=== PATIENT | female | born 1990 | race Caucasian/White ===

== ENCOUNTER 2020-06-25 11:39 | Emergency (ER) | payer BC, SELFPAY ==
[2020-06-25 11:40] VITALS: BP 126/91; PULSE 101; RESP 16; TEMP 36.7; O2SAT 96; BMI 37.2
--- NOTE | 2020-06-25 11:52 | HMH.EDURI ---
ED Disposition Clinical Impression: Viral infection Disposition: Home, Self-Care Condition on Discharge: Good Instructions: DI for Acute Bronchitis, DI for Viral Upper Respiratory Infection -- Adult Prescriptions: methylPREDNISolone [Medrol 4mg tab] 4 mg PO DIRECTED #21 tab Transmission Status: Pending to [id number] Referrals: Bushra Degroot MD [Primary Care Provider] - - Critical Care Critical Care Time: No Attestation: On , the high probability of a clinically significant, sudden or life threatening deterioration of the following system(s) required my full and direct attention, intervention and personal management. The time I documented below is in addition to time spent performing reported procedures but includes the following listed in this critical care notation. Medical Decision Making - Medical Records Medical records reviewed: Yes: I reviewed the patient's medical records. - Zackary Inquiry Pt receiving controlled substance: No - Lab Data Lab results reviewed: Yes: I reviewed the patient's lab results. URI/Sore Throat HPI - General Chief Complaint: Upper Respiratory Infection Stated Complaint: sore throat Time Seen by Provider: 06/25/20 11:39 Source of Information: Patient Limitations: No Limitations - History of Present Illness HPI Narrative: 2-year-old female presents with sore throat. She states she woke up with a sore throat and mainly pain on the left side. She does rate this pain as a sharp sensation constantly there and states is 3 out of 10. She describes alleviating factors include drinking cold fluids and exacerbating factors include swallowing. Patient denies any recent fever shakes or chills. Patient denies any nausea or vomiting. - Related Data Home Medications Medication Instructions Recorded Confirmed Potassium Chloride 1 tab PO QID 07/26/19 06/05/20 Previous Rx's Medication Instructions Recorded methylPREDNISolone [Medrol 4mg 4 mg PO DIRECTED #21 tab 06/25/20 tab] Allergies Allergy/AdvReac Type Severity Reaction Status Date / Time No Known Allergies Allergy Verified 06/05/20 14:58 [facility] History - Hepatitis A Screen Attestation statement:: This patient has been screened for Hepatitis A risk factors. I have reviewed the patient's past medical history: Yes Medical History: Reports:: Diabetes Mellitus Type 2 Other Surgeries: Yes: No Previous Surgery - Social History Smoking Status: Current every day smoker Tobacco Type: cigarettes # Packs/Day (cigarettes): 1 Alcohol Intake: never Occupational Status: other ROS Obtained: Yes All systems reviewed & no additional complaints - Constitutional Constitutional: Reports system reviewed and no additional complaints, except as docu - Eyes Eyes: Reports system reviewed and no additional complaints, except as docu - ENT Ears, Nose, Mouth, and Throat: Reports system reviewed and no additional complaints, except as docu - Cardiovascular Cardiovascular: Reports system reviewed and no additional complaints, except as docu - Respiratory Respiratory: Yes system reviewed and no additional complaints, except as docu - Gastrointestinal Gastrointestingal: Reports: system reviewed and no additional complaints, except as docu - Genitourinary Male Genitourinary: Reports system reviewed and no additional complaints, except as docu Female Genitourinary: Reports system reviewed and no additional complaints, except as docu - Musculoskeletal Musculoskeletal: Reports system reviewed and no additional complaints, except as docu - Integumentary/Breasts Skin/Breast: Reports system reviewed and no additional complaints, except as docu - Neurologic Neurologic: Reports system reviewed and no additional complaints, except as docu - Endocrine Endocrine: Reports system reviewed and no additional complaints, except as docu - Hematologic/Lymphatic Henatologic/Lymphatic: Reports system reviewed
[2020-06-25 12:48] VITALS: BP 132/85; PULSE 90; RESP 18; TEMP 36.7; O2SAT 98
[2020-06-25 12:55] LABS: Strep Scrn Group A (Rapid) Negative (Negative)
--- NOTE | 2020-06-25 14:57 | PC.NURSE ---
called patient and notified her that she was positive for covid as well as her daughter
== END 2020-06-25 12:49 | disposition home or self-care (01) ==
LOC: ER 11:57
PROVIDERS: Emergency Provider Family Medicine; PCP Family Medicine
DX: B34.9 Viral infection, unspecified (principal); F17.210 Nicotine dependence, cigarettes, uncomplicated; E11.9 Type 2 diabetes mellitus without complications
CPT/HCPCS: 87430; 96372; 99282; U0003

== ENCOUNTER 2020-07-21 11:53 | Emergency (ER) | payer BC, SELFPAY ==
--- NOTE | 2020-07-21 | ECG_ITS ---
APPROVED REPORT Exam: Resting ECG HR:88 bpm ECG Measurements Heart Rate 88 AXES SC 126 P 53 QRSd 84 QRS 77 QT 376 T 34 QTc 454 <Conclusion> Normal sinus rhythm Possible Left atrial enlargement Borderline ECG Electronically signed by : Stoney Rowley, 07/21/2020 16:29:52
[2020-07-21 11:53] VITALS: BP 144/89; PULSE 111; RESP 17; TEMP 37; O2SAT 96; BMI 38.0
[2020-07-21 12:02] VITALS: BMI 38.0
--- NOTE | 2020-07-21 12:02 | HMH.EDMCLR ---
ED Disposition Clinical Impression: Pleurisy, Hypokalemia Hyperglycemia due to type 2 diabetes mellitus Qualifiers: Diabetes mellitus fdc insulin use: unspecified fdc insulin use status Qualified Code(s): E11.65 - Type 2 diabetes mellitus with hyperglycemia Disposition: Home, Self-Care Condition on Discharge: Good Additional Instructions: You were seen on an emergency basis. It is very important that you follow up with your primary care provider and/or specialist as we discussed within 2 days. All labs and imaging were obtained and interpreted here to rule out life threatening emergencies, but your final results should be reviewed by your primary doctor at your follow up appointment. Please return to the emergency department if any of your symptoms worsen, or if they do not improve as we discussed. Referrals: Bushra Degroot MD [Primary Care Provider] - - Critical Care Critical Care Time: No Attestation: On 07/21/20, the high probability of a clinically significant, sudden or life threatening deterioration of the following system(s) required my full and direct attention, intervention and personal management. The time I documented below is in addition to time spent performing reported procedures but includes the following listed in this critical care notation. Medical Decision Making - Medical Records Medical records reviewed: Yes: I reviewed the patient's medical records. - Zackary Inquiry Pt receiving controlled substance: No Vital Signs: 07/21/20 11:53 07/21/20 12:23 07/21/20 13:52 Temperature 98.6 F Temperature Source Oral Pulse Rate [Left Radial] 111 H 89 88 Respiratory Rate 17 14 16 Blood Pressure [Right Arm] 144/89 H 102/74 L 134/79 Blood Pressure Mean [Right Arm] 107 83 97 Blood Pressure Source [Right Arm] Automatic Cuff Automatic Cuff Automatic Cuff Blood Pressure Position [Right Arm] Sitting Sitting Sitting 02 Sat by Pulse Oximetry 96 97 95 Oxygen Delivery Method Room Air Room Air Room Air 07/21/20 14:22 Temperature Temperature Source Pulse Rate [Left Radial] 93 H Respiratory Rate 20 Blood Pressure [Right Arm] 106/84 L Blood Pressure Mean [Right Arm] 91 Blood Pressure Source [Right Arm] Automatic Cuff Blood Pressure Position [Right Arm] Sitting 02 Sat by Pulse Oximetry 96 Oxygen Delivery Method Room Air - Lab Data Lab results reviewed: Yes: I reviewed the patient's lab results. Lab Results 07/21/20 12:00: WBC 12.5 H, RBC 5.20, Hgb 17.2 H, Hct 45.1, MCV 86.6, MCH 33.0 H, MCHC 38.1 H, RDW 14.9, Plt Count 260, MPV 8.1, Neut % (Auto) 62.3, Lymph % (Auto) 29.7, [place] % (Auto) 4.7, Eos % (Auto) 2.6, Baso % (Auto) 0.6, Neut # (Auto) 7.8, Lymph # (Auto) 3.7, Cloud # (Auto) 0.6, Eos # (Auto) 0.3, Baso # (Auto) 0.1 07/21/20 12:00: Sodium 134 L, Potassium 2.2 L*, Chloride 88 L, Carbon Dioxide 34 H, Anion Gap 14.2, BUN 12, Creatinine 0.60, Estimated Creat Clear 211, Estimated GFR 117, Est GFR ( Amer) 142, Glucose 435 H*, Calcium 9.9 07/21/20 12:00: D-Dimer 0.38 07/21/20 12:00: Serum HCG, Qual Negative 07/21/20 12:00: SARS-CoV-2 IgG Ab (Rapid) Negative, SARS-CoV-2 IgM Ab (Rapid) Negative 07/21/20 13:00: Urine Color Red, Urine Appearance Cloudy, Urine pH 8.0, Ur Specific [place] 1.015, Urine Protein 3+, Urine Glucose (UA) 3+, Urine Ketones Trace, Urine Blood 3+, Urine Nitrate Positive, Urine Bilirubin Negative, Urine Urobilinogen 1.0, Ur Leukocyte Esterase 2+ A, Urine RBC Tntc, Urine WBC 20-50, Ur Squamous Epith Cells 10-20, Amorphous Sediment 2+, Urine Bacteria 2+ Result diagrams: 07/21/20 12:00 07/21/20 12:00 Orders (Tests/Meds): ED MEDICATIONS Generic Name Dose Route Start Last Admin Trade Name Freq PRN Reason Stop Dose Admin Potassium Chloride/Water 100 mls @ 50 mls/hr 07/21/20 13:00 07/21/20 15:00 Potassium Chloride 20meq/100ml Ivpb IV 07/21/20 16:59 50 mls/hr Q2H NASRIN Administration Discontinued Medications Generic Name Dose Route Start Last Admin Trad
--- NOTE | 2020-07-21 12:04 | XR_ITS ---
PROCEDURE: XR CHEST 2V CLINICAL HISTORY: CHEST WALL PAIN COMPARISON: CR CXR CHEST(2 VIEWS-NOT PORTABLE) from 06/22/2013 CR CXR CHEST(2 VIEWS-NOT PORTABLE) from 04/13/2015 FINDINGS: The cardiomediastinal silhouette and pulmonary vascularity are within normal limits. The lungs are clear without infiltrates, suspicious nodules, or pleural effusions. No acute bony abnormalities. IMPRESSION: No acute findings. Dictated by: Dr. Edgardo Flores MD 07/21/2020 13:00 Dr. Edgardo Flores MD in [facility] 07/21/2020 13:00
[2020-07-21 12:17] LABS: Basophils # 0.1 K/mm3 (0-0.2); Basophils % 0.6 % (0.1-2.0); Eosinophils # 0.3 K/mm3 (0.0-0.4); Eosinophils % 2.6 % (0.1-12.0); Hematocrit 45.1 % (37.0-47.0); Hemoglobin 17.2 g/dL (12.2-16.2); Lymphocytes # 3.7 K/mm3 (0.7-4.5); Lymphocytes % 29.7 % (10-50); Mean Corpuscular HGB Conc 38.1 g/dL (31.8-35.4); Mean Corpuscular Volume 86.6 fl (81-99); Mean Platelet Volume 8.1 fl (7.4-10.4); Monocytes # 0.6 K/mm3 (0.1-1.0); Monocytes % 4.7 % (1.7-9.3); Neutrophils # 7.8 K/mm3 (1.8-7.8); Neutrophils % 62.3 % (37.0-80.0); Platelet Count 260 K/mm3 (142-424); Red Cell Distribution Width 14.9 % (11.5-17.5); White Blood Count 12.5 K/mm3 (4.8-10.8)
[2020-07-21 12:22] LABS: Chloride 88 mmol/L (98-107)
[2020-07-21 12:23] VITALS: BP 102/74; PULSE 89; RESP 14; O2SAT 97
[2020-07-21 12:23] LABS: Sodium 134 mmol/L (136-145)
[2020-07-21 12:24] LABS: Potassium 2.2 mmoL/L (3.5-5.1)
[2020-07-21 12:25] LABS: Blood Urea Nitrogen 12 mg/dl (7-17); Creatinine Clearance Estimated 211 mL/min (50-200); Estimated Glomerular Filt Rate 117 ml/min (>60); GFR (African American) 142 ML/MIN (>60)
[2020-07-21 12:26] LABS: Anion Gap 14.2 mEq/L (5-15); Calcium 9.9 mg/dl (8.4-10.2); Carbon Dioxide 34 mmol/L (22.0-30.0)
[2020-07-21 12:29] LABS: HCG Qualitative, Serum Negative (Negative)
[2020-07-21 12:31] LABS: Glucose 435 mg/dl (74-100)
[2020-07-21 12:32] LABS: D-Dimer 0.38 ug/mL (0.15-8.0)
--- NOTE | 2020-07-21 13:00 | PC.NURSE ---
Pt moved from room 9 to room 7 for potasssium infusion
[2020-07-21 13:02] LABS: Microscopic, Urine URINE MICROSCOPIC (MICROSCOPIC)
[2020-07-21 13:06] LABS: Appearance,Urine CLOUDY (Clear); Blood, Urine 3+ (Negative); Color,Urine RED (Yellow); Glucose,Urine (UA) 3+ (Negative); Ketones,Urine TRACE (Negative); Leukocyte Esterase,Urine 2+ (Negative); Nitrate,Urine POSITIVE (Negative); Protein,Urine 3+ (Negative); Specific Gravity, Urine 1.015 (1.005-1.030)
[2020-07-21 13:14] LABS: Bilirubin,Urine Negative (Negative)
[2020-07-21 13:16] LABS: Amorphous Sediment,Urine 2+ /lpf; Bacteria,Urine 2+ /lpf; RBC,Urine TNTC #/hpf (0-3); WBC,Urine 20-50 #/hpf (0-3)
--- NOTE | 2020-07-21 13:34 | PC.NURSE ---
speaking to for admission
--- NOTE | 2020-07-21 13:37 | PC.NURSE ---
states that is the pt normal with 2.2 of potassium. states after infusion pt can DC home and fu with PCP
[2020-07-21 13:52] VITALS: BP 134/79; PULSE 88; RESP 16; O2SAT 95
[2020-07-21 14:22] VITALS: BP 106/84; PULSE 93; RESP 20; O2SAT 96
[2020-07-21 15:19] LABS: Coronavirus 19 IgG Antibody Negative (Negative); Coronavirus 19 IgM Antibody Negative (Negative)
[2020-07-21 17:00] VITALS: BP 131/74; PULSE 85; RESP 17; TEMP 37; O2SAT 97
== END 2020-07-21 17:02 | disposition home or self-care (01) ==
PROVIDERS: Emergency Provider Physician Assistant; PCP Family Medicine
DX: R09.1 Pleurisy (principal); E87.6 Hypokalemia; E11.65 Type 2 diabetes mellitus with hyperglycemia; F17.210 Nicotine dependence, cigarettes, uncomplicated; Z03.818 Encounter for observation for suspected exposure to other biological agents ruled out
CPT/HCPCS: 71046; 80048; 81001; 84703; 85025; 85378; 86328; 87086; 93005; 96365; 96366; 96367; 96375; 99284

== ENCOUNTER 2020-10-01 17:17 | Emergency (ER) | payer BC, SELFPAY ==
[2020-10-01 17:38] VITALS: BP 153/86; PULSE 72; RESP 16; TEMP 36.7; O2SAT 98; BMI 37.2
--- NOTE | 2020-10-01 17:46 | HMH.EDGENADL ---
ED Disposition Clinical Impression: Hypokalemia, Quadriceps weakness Disposition: Home, Self-Care Condition on Discharge: Fair Instructions: DI for Hypokalemia Additional Instructions: Double your usual dose of potassium. Follow-up with your primary care provider soon as possible, call tomorrow to be seen within 1 to 2 days. You will need your potassium level rechecked, and a recheck on your elevated white blood cell count. Turn to the emergency department if worsening pain or weakness, fever, vomiting, any new symptoms. Referrals: Bushra Degroot MD [Primary Care Provider] - - Critical Care Critical Care Time: Yes Attestation: On 10/01/20, the high probability of a clinically significant, sudden or life threatening deterioration of the following system(s) required my full and direct attention, intervention and personal management. The time I documented below is in addition to time spent performing reported procedures but includes the following listed in this critical care notation. Total Critical Care Time: 30 Vital system(s) involved:: Metabolic Failure My critical care processes included: Assessment & monitoring of V/S, Initial and Re-exams, Data Review/Interpretation, Coordinating Care, Medication Orders and management, Documentation Medical Decision Making - Medical Records Medical records reviewed: Yes: I reviewed the patient's medical records. MR Comment: Reviewed recent ER visit 07/21/2020 - Zackary Inquiry Pt receiving controlled substance: No Vital Signs: 10/01/20 17:38 10/01/20 17:55 Temperature 98.1 F Temperature Source Oral Pulse Rate [Right Brachial] 72 96 H Respiratory Rate 16 Blood Pressure [Right Arm] 153/86 H 153/86 H Blood Pressure Mean [Right Arm] 108 108 Blood Pressure Source [Right Arm] Automatic Cuff Automatic Cuff Blood Pressure Position [Right Arm] Sitting Sitting 02 Sat by Pulse Oximetry 98 97 Oxygen Delivery Method Room Air Room Air - Lab Data Lab results reviewed: Yes: I reviewed the patient's lab results. Lab Results 10/01/20 18:26: WBC 19.6 H, RBC 5.75 H, Hgb 18.0 H, Hct 51.0 H, MCV 88.7, MCH 31.3 H, MCHC 35.2, RDW 14.5, Plt Count 262, MPV 8.3, Neut % (Auto) 70.3, Lymph % (Auto) 22.9, [place] % (Auto) 4.2, Eos % (Auto) 1.9, Baso % (Auto) 0.7, Neut # (Auto) 13.8 H, Lymph # (Auto) 4.5, [place] # (Auto) 0.8, Eos # (Auto) 0.4, Baso # (Auto) 0.1, Total Counted 100, Neutrophils % (Manual) 86 H, Band Neutrophils % 4.0, Lymphocytes % (Manual) 9 L, Eosinophils % (Manual) 1, Platelet Estimate Normal, RBC Morphology Normal 10/01/20 18:26: Sodium 135 L, Potassium 1.9 L*, Chloride 91 L, Carbon Dioxide 33 H, Anion Gap 12.9, BUN 13, Creatinine 0.60, Estimated Creat Clear 206, Estimated GFR 117, Est GFR ( Amer) 142, Glucose 345 H, Calcium 9.9, Total Bilirubin 0.5, AST 44 H, ALT 62, Alkaline Phosphatase 155 H, Total Creatine Kinase 164 H, Total Protein 7.5, Albumin 4.3, Globulin 3.2, Albumin/Globulin Ratio 1.3 10/01/20 18:26: Magnesium 1.5 L 10/01/20 18:26: SARS-CoV-2 IgG Ab (Rapid) Negative, SARS-CoV-2 IgM Ab (Rapid) Negative 10/01/20 20:30: Urine Color Yellow, Urine Appearance Sl cloudy, Urine pH 7.0, Ur Specific [place] 1.020, Urine Protein Negative, Urine Glucose (UA) 3+, Urine Ketones Negative, Urine Blood Negative, Urine Nitrate Negative, Urine Bilirubin Negative, Urine Urobilinogen 0.2, Ur Leukocyte Esterase Negative, Urine WBC Occasional, Ur Squamous Epith Cells 20-50 Result diagrams: 10/01/20 18:26 10/01/20 18:26 Orders (Tests/Meds): ED MEDICATIONS Generic Name Dose Route Start Last Admin Trade Name Freq PRN Reason Stop Dose Admin Potassium Chloride/Water 20 meq 10/01/20 19:31 Potassium Chloride 20meq/100ml Ivpb IV 10/01/20 19:32 ONCE ONE Discontinued Medications Generic Name Dose Route Start Last Admin Trade Name Freq PRN Reason Stop Dose Admin Potassium Chloride 40 meq 10/01/20 19:31 10/01/20 19:33 Potassium Chloride 20meq Tab PO 10/01/20 19:32 40 meq
[2020-10-01 17:55] VITALS: BP 153/86; PULSE 96; O2SAT 97
[2020-10-01 18:48] LABS: Basophils # 0.1 K/mm3 (0-0.2); Basophils % 0.7 % (0.1-2.0); Eosinophils # 0.4 K/mm3 (0.0-0.4); Eosinophils % 1.9 % (0.1-12.0); Lymphocytes # 4.5 K/mm3 (0.7-4.5); Lymphocytes % 22.9 % (10-50); Mean Corpuscular HGB Conc 35.2 g/dL (31.8-35.4); Mean Corpuscular Hemoglobin 31.3 pg (27.0-31.2); Mean Corpuscular Volume 88.7 fl (81-99); Mean Platelet Volume 8.3 fl (7.4-10.4); Monocytes # 0.8 K/mm3 (0.1-1.0); Monocytes % 4.2 % (1.7-9.3); Neutrophils # 13.8 K/mm3 (1.8-7.8); Neutrophils % 70.3 % (37.0-80.0); Platelet Count 262 K/mm3 (142-424); Red Blood Count 5.75 M/mm3 (4.20-5.40); Red Cell Distribution Width 14.5 % (11.5-17.5); White Blood Count 19.6 K/mm3 (4.8-10.8)
[2020-10-01 18:50] LABS: MANUAL DIFFERENTIAL MANUAL DIFFERENTIAL (MANUAL DIFF)
[2020-10-01 18:54] LABS: Alanine Aminotransferase 62 U/L (12-78); Albumin Level 4.3 g/dl (3.5-5.0); Albumin/Globulin Ratio 1.3 (1.1-1.8); Alkaline Phosphatase 155 U/L (38-126); Anion Gap 12.9 mEq/L (5-15); Aspartate Amino Transferase 44 U/L (14-36); Bilirubin,Total 0.5 mg/dl (0.2-1.3); Blood Urea Nitrogen 13 mg/dl (7-17); Calcium 9.9 mg/dl (8.4-10.2); Carbon Dioxide 33 mmol/L (22.0-30.0); Chloride 91 mmol/L (98-107); Creatine Kinase 164 U/L (30-135); Creatinine Clearance Estimated 206 mL/min (50-200); Estimated Glomerular Filt Rate 117 ml/min (>60); GFR (African American) 142 ML/MIN (>60); Globulin 3.2 g/dL (1.3-3.2); Glucose 345 mg/dl (74-100); Sodium 135 mmol/L (136-145); Total Protein,Serum 7.5 g/dl (6.3-8.2)
[2020-10-01 19:07] LABS: Potassium 1.9 mmoL/L (3.5-5.1)
[2020-10-01 19:09] LABS: Eosinophils % 1 % (0-3); Lymphocytes % 9 % (10-50); Neutrophils % 86 % (42-76); Platelet Estimate Normal; RBC Morphology Normal; Total Cells Counted 100
--- NOTE | 2020-10-01 19:20 | PC.NURSE ---
Critical K+ reported from lab, Dr Deleon notified
[2020-10-01 19:42] LABS: Magnesium 1.5 mg/dl (1.6-2.3)
--- NOTE | 2020-10-01 19:44 | PC.NURSE ---
IV Potassium started, does not reflex to MAR is running via pump per Dr Deleon orders
[2020-10-01 20:31] LABS: Coronavirus 19 IgG Antibody Negative (Negative); Coronavirus 19 IgM Antibody Negative (Negative)
[2020-10-01 20:35] LABS: Microscopic, Urine URINE MICROSCOPIC (MICROSCOPIC)
[2020-10-01 20:37] LABS: Appearance,Urine SL CLOUDY (Clear); Bilirubin,Urine Negative (Negative); Blood, Urine Negative (Negative); Color,Urine YELLOW (Yellow); Glucose,Urine (UA) 3+ (Negative); Ketones,Urine Negative (Negative); Leukocyte Esterase,Urine Negative (Negative); Nitrate,Urine Negative (Negative); Protein,Urine Negative (Negative); Urobilinogen,Urine 0.2 EU/dl (0.2)
[2020-10-01 20:39] LABS: Squamous Epithelial Cell,Urine 20-50 #/hpf (0-5); WBC,Urine Occasional #/hpf (0-3)
[2020-10-01 21:07] VITALS: BP 148/68; PULSE 86; RESP 16; TEMP 36.7; O2SAT 97
== END 2020-10-01 21:11 | disposition home or self-care (01) ==
PROVIDERS: Emergency Provider Emergency Medicine; PCP Family Medicine
DX: E87.6 Hypokalemia (principal); M62.81 Muscle weakness (generalized); E11.65 Type 2 diabetes mellitus with hyperglycemia; Z01.84 Encounter for antibody response examination; F17.210 Nicotine dependence, cigarettes, uncomplicated; R03.0 Elevated blood-pressure reading, without diagnosis of hypertension
CPT/HCPCS: 80053; 81001; 82550; 83735; 85007; 85025; 86328; 96365; 96375; 99283

== ENCOUNTER → 2020-10-03 12:28 | Outpatient (CLI) | payer BC, SELFPAY ==
[2020-10-03 15:07] LABS: Potassium 3.1 mmoL/L (3.5-5.1)
[2020-10-03 15:10] LABS: Glucose,Random 169 mg/dL (74-100)
== END ==
PROVIDERS: Visit Provider Family Medicine
DX: E87.6 Hypokalemia (principal); E26.81 Bartter's syndrome; E11.9 Type 2 diabetes mellitus without complications
CPT/HCPCS: 36415; 82947; 84132

== ENCOUNTER 2021-04-06 09:01 | Emergency (ER) | payer BC, SELFPAY ==
[2021-04-06 09:05] VITALS: BP 131/71; PULSE 99; RESP 19; TEMP 37; O2SAT 98; BMI 38.0
--- NOTE | 2021-04-06 09:16 | HMH.EDUTC ---
[facility] [place] Disposition Clinical Impression: Strep throat Disposition: Home, Self-Care Condition on Discharge: Good Instructions: DI for Strep Throat Additional Instructions: Replace toothbrush. Take all antibiotics as directed until gone. Prescriptions: Amoxicillin [Amoxicillin 875MG Tab] 875 mg PO Q12H #20 tab Transmission Status: Pending to [id number] Referrals: Bushra Degroot MD [Primary Care Provider] - Time of Disposition: 09:26 Medical Decision Making - Zackary Inquiry Pt receiving controlled substance: No - Lab Data Lab results reviewed: Yes: I reviewed the patient's lab results. [facility] [place] HPI - General Stated complaint: sore throat Time Seen by Provider: 04/06/21 09:16 - History of Present Illness Provider Complaint: Sore throat X 1 week. No fever. Denies ear pain, congestion, cough. Denies vomiting/diarrhea. Onset (ago): week(s) (1) Relieving factors: none Exacerbating factors: none Associated symptoms: denies other symptoms Treatments prior to arrival: other (Dayquil/Nyquil) - Related Data Home Medications Medication Instructions Recorded Confirmed Potassium Chloride 1 tab PO QID 07/26/19 07/21/20 Empagliflozin [Jardiance] 25 mg PO DAILY 04/06/21 04/06/21 Metformin HCl 500 mg PO BID 04/06/21 04/06/21 Previous Rx's Medication Instructions Recorded Amoxicillin [Amoxicillin 875MG 875 mg PO Q12H #20 tab 04/06/21 Tab] Allergies Allergy/AdvReac Type Severity Reaction Status Date / Time No Known Allergies Allergy Verified 06/05/20 14:58 [facility] History - Hepatitis A Screen Attestation statement:: This patient has been screened for Hepatitis A risk factors. I have reviewed the patient's past medical history: Yes Medical History: Reports:: Diabetes Mellitus Type 2 Other Surgeries: Yes: No Previous Surgery - Social History Smoking Status: Current every day smoker Tobacco Type: cigarettes # Packs/Day (cigarettes): 1 Alcohol Intake: never Occupational Status: employed ROS Obtained: Yes All systems reviewed & no additional complaints - Constitutional Constitutional: Denies fever(s) - ENT Ears, Nose, Mouth, and Throat: Reports sore throat Physical Exam - General General appearance: alert, in no apparent distress - Head Head exam: normocephalic - Eye Eye exam: Present: PERRL - Expanded ENT Exam Throat exam: Present: tonsillar erythema, tonsillomegaly, tonsillar exudate - Chest Chest inspection: Present: normal inspection, symmetric chest wall rise - Respiratory Respiratory exam: Present: normal lung sounds bilaterally - Cardiovascular Cardiovascular exam: Present: regular rate, normal rhythm - Neurological Exam Neurological exam: Present: alert, oriented X3 - Psychiatric Psychiatric exam: Present: normal affect, normal mood - Skin Skin exam: Present: warm, dry, intact
[2021-04-06 09:21] LABS: UTC Strep Screen (Rapid) Positive (Negative)
[2021-04-06 09:27] VITALS: BP 131/71; PULSE 99; RESP 19; TEMP 37; O2SAT 98
== END 2021-04-06 09:30 | disposition home or self-care (01) ==
PROVIDERS: Emergency Provider Physician Assistant; PCP Family Medicine
DX: J02.0 Streptococcal pharyngitis (principal); E11.9 Type 2 diabetes mellitus without complications; F17.210 Nicotine dependence, cigarettes, uncomplicated
CPT/HCPCS: 87880; 99202; G0463

== ENCOUNTER 2021-06-17 13:15 | Emergency (ER) | payer BC, SELFPAY ==
[2021-06-17 13:23] VITALS: BP 120/74; PULSE 104; RESP 16; TEMP 36.7; O2SAT 95; BMI 38.0
[2021-06-17 14:21] VITALS: PULSE 86; RESP 18; TEMP 36.6; O2SAT 97; BMI 38.0
--- NOTE | 2021-06-17 14:57 | HMH.EDUTC ---
[facility] [place] Disposition Clinical Impression: Dyspepsia Disposition: Home, Self-Care Condition on Discharge: Good Instructions: DI for Dyspepsia, Famotidine Additional Instructions: Drink plenty of fluids. Take tylenol or ibuprofen for pain or fever. Take the medications as directed. Follow up with your regular doctor. GO TO THE ER FOR ANY WORSENING SYMPTOMS I put in a referral to the GI secialist, please call his office number and make our Prescriptions: Ondansetron [Zofran 4mg ODT] 4 mg PO Q8HP PRN #12 tab.rapdis PRN Reason: Nausea [facility] Sucralfate [Carafate 1gm Tab] 1 gm PO ACHS #56 tab Transmission Status: [facility] Famotidine [Pepcid 20mg Tablet] 20 mg PO BID 30 Days #60 tab Transmission Status: [facility] Referrals: Bushra Degroot MD [Primary Care Provider] - Nnamdi Mckenzie MD [Staff Physician] - Forms: Work/School Release Time of Disposition: 15:08 Medical Decision Making - Medical Records Medical records reviewed: No: I reviewed the patient's medical records. - Zackary Inquiry Pt receiving controlled substance: No Vital Signs: 06/17/21 13:23 06/17/21 14:21 06/17/21 15:11 Temperature 98.1 F 98 F 98 F Temperature Source Oral Oral Pulse Rate 81 Pulse Rate [Right Radial] 104 H 86 Respiratory Rate 16 18 16 Blood Pressure 124/79 Blood Pressure [Left Arm] 120/74 Blood Pressure Mean [Left Arm] 89 Blood Pressure Source [Left Arm] Automatic Cuff Blood Pressure Position [Left Arm] Sitting 02 Sat by Pulse Oximetry 95 97 Oxygen Delivery Method Room Air [facility] [place] HPI - General Stated complaint: burning in stomach, occasional chest pain Time Seen by Provider: 06/17/21 13:45 Mode of Arrival: Ambulatory Source of Information: Patient Limitations: No Limitations Description of Symptoms (Recalled from Triage Doc. by RN): pt states she is having a burning sensation in her epigasteric region. she also c/o chest pain and nausea after eating. no chest pain at this time. pt states this has been ongoing for one week. HEENT Symptoms (Recalled from RN notes): No Resp Symptoms (Recalled from RN notes): No Skin Symptoms (Recalled from RN notes): No MS Symptoms (Recalled from RN notes): No Functional Status (Recalled from RN notes): na - History of Present Illness Provider Complaint: She states that for the past 1 week approx, she has had frequent episodes of heart burn and gi upset. She denies any abdominal pain. - Related Data Home Medications Medication Instructions Recorded Confirmed Potassium Chloride 1 tab PO QID 07/26/19 04/06/21 Empagliflozin [Jardiance] 25 mg PO DAILY 04/06/21 04/06/21 Metformin HCl 500 mg PO BID 04/06/21 04/06/21 Previous Rx's Medication Instructions Recorded Amoxicillin [Amoxicillin 875MG 875 mg PO Q12H #20 tab 04/06/21 Tab] Famotidine [Pepcid 20mg Tablet] 20 mg PO BID 30 Days #60 tab 06/17/21 Ondansetron [Zofran 4mg ODT] 4 mg PO Q8HP PRN #12 tab.rapdis 06/17/21 Sucralfate [Carafate 1gm Tab] 1 gm PO ACHS #56 tab 06/17/21 Allergies Allergy/AdvReac Type Severity Reaction Status Date / Time No Known Allergies Allergy Verified 06/17/21 14:23 - Worker's Comp Is this a Worker's Comp case?: No [facility] History - Hepatitis A Screen Drug use history?: No High risk sexual behaviors?: No History of sexually transmitted infection?: No Currently employed?: No Childcare worker?: No Do you have indoor plumbing?: Yes Do you have electricity?: Yes Attestation statement:: This patient has been screened for Hepatitis A risk factors. I have reviewed the patient's past medical history: Yes Medical History: Reports:: Diabetes Mellitus Type 2 Other Surgeries: Yes: No Previous Surgery - Social History Smoking Status: Current every day smoker Tobacco Type: cigarettes # Packs/Day (cigarettes): 1 Alcohol Intake: never Occu
[2021-06-17 15:11] VITALS: BP 124/79; PULSE 81; RESP 16; TEMP 36.6
[2021-06-20 14:04] LABS: UTC Strep Screen (Rapid) Negative (Negative)
== END 2021-06-17 15:15 | disposition home or self-care (01) ==
PROVIDERS: Emergency Provider Nurse Practitioner Family; PCP Family Medicine
DX: R10.13 Epigastric pain (principal); E11.9 Type 2 diabetes mellitus without complications; Z79.84 Long term (current) use of oral hypoglycemic drugs
CPT/HCPCS: 87880; 99202; G0463

== ENCOUNTER → 2021-07-05 08:18 | Outpatient (CLI) | payer BC, SELFPAY ==
--- NOTE | 2021-07-05 08:23 | XR_ITS ---
PROCEDURE: XR FOOT WT BEARING RT 3V CLINICAL INDICATION: foot pain COMPARISON: No exams were available for comparison FINDINGS: No fracture or dislocation. No lytic or blastic change. There is normal mineralization. The joint spaces are well-preserved. No significant degenerative/arthritic changes. No erosive changes evident. Other findings:Small calcaneal spur IMPRESSION: No acute findings. Dictated by: Jens Mata MD 07/05/2021 11:26 Jens Mata MD in [facility] 07/05/2021 11:26
--- NOTE | 2021-07-05 08:23 | XR_ITS ---
PROCEDURE: XR FOOT WT BEARING LT 3V CLINICAL INDICATION: foot pain COMPARISON: No exams were available for comparison FINDINGS: No fracture or dislocation. No lytic or blastic change. There is normal mineralization. The joint spaces are well-preserved. No significant degenerative/arthritic changes. No erosive changes evident. Other findings:Small calcaneal spur IMPRESSION: No acute findings. Dictated by: Jens Mata MD 07/05/2021 11:26 Jens Mata MD in [facility] 07/05/2021 11:26
== END ==
LOC: RAD 08:19
PROVIDERS: PCP Family Medicine; Visit Provider Podiatrist
DX: M79.672 Pain in left foot (principal); M79.671 Pain in right foot
CPT/HCPCS: 73630

== ENCOUNTER 2022-10-28 12:48 | Emergency (ER) | payer BC, SELFPAY ==
--- NOTE | 2022-10-28 14:08 | EXP.UTC ---
Discharge Plan Disposition Patient Disposition: Home, Self-Care Condition: Good Prescriptions Prescriptions: New azithromycin [Zithromax] 250 mg tablet 250 mg PO UD DOSE PK Qty: 6 0RF Rx Instructions: Take two (2) tablets today, then one (1) tablet days #2 thru #5 lhfjcplvbckkbiq-ttuwgynfk-QC [Bromfed DM] 2-30-10 mg/5 mL Syrup 5 ml PO Q6H PRN (Reason: Cough) Qty: 240 0RF oseltamivir [Tamiflu] 75 mg capsule 75 mg PO BID Qty: 10 0RF No Action glimepiride 4 mg tablet 4 mg PO DAILY meloxicam 7.5 mg tablet 7.5 mg PO DAILY 30 Days Qty: 30 2RF potassium chloride 20 MEQ tablet extended release 1 tab PO QID Label Comments: TAKE 1 TABLET BY MOUTH 4 TIMES DAILY famotidine 20 MG tablet 20 mg PO BID 30 Days Qty: 60 2RF metformin 500 MG tablet 500 mg PO BID empagliflozin 25 MG tablet 25 mg PO DAILY Label Comments: TAKE 1 TABLET BY MOUTH ONCE DAILY FOR 30 DAYS Referrals Follow up/Referrals: Bushra Degroot MD [Primary Care Provider] - See instructions Activity Restrictions/Add. Instructions Additional Instructions/Restrictions: Drink plenty of fluids. Take tylenol or ibuprofen for pain or fever. Take the medications as directed. Follow up with your regular doctor. GO TO THE ER FOR ANY WORSENING SYMPTOMS Clinical Impressions Clinical Impression: Pharyngitis, Viral infection Stand Alone Forms Stand Alone Forms: Work/School Release Instructions Patient Instructions: Strep Throat, DI for Strep Throat Discharge ED Provider: Leland Ribeiro [facility] General Stated complaint: headache,body aches,sore throat,diarrhea Time Seen by Provider: 10/28/22 14:08 History of Present Illness Provider Complaint: She c/o headache, body aches, sore throat, diarrhea for the past 2 days . Related Data Home Medications Medication Instructions Recorded Confirmed potassium chloride 20 mEq 1 tab PO QID Supplement 07/26/19 07/05/21 tablet,extended release empagliflozin 25 mg tablet 25 mg PO DAILY Diabetes 04/06/21 07/05/21 metformin 500 mg tablet 500 mg PO BID Diabetes 04/06/21 07/05/21 glimepiride 4 mg tablet 4 mg PO DAILY 07/05/21 07/05/21 Previous Rx's Medication Instructions Recorded famotidine 20 mg tablet 20 mg PO BID 30 days #60 tabs 06/17/21 meloxicam 7.5 mg tablet 7.5 mg PO DAILY pain 30 days #30 07/05/21 tabs azithromycin 250 mg tablet 250 mg PO UD DOSE PK #6 tabs 10/28/22 (Zithromax) epbqtpofsyeutpk-jweuqvybzgmnuvb-LV 5 ml PO Q6H PRN Cough #240 mL 10/28/22 2 mg-30 mg-10 mg/5 mL oral syrup (Bromfed DM) oseltamivir 75 mg capsule (Tamiflu) 75 mg PO BID #10 caps 10/28/22 Allergies Allergy/AdvReac Type Severity Reaction Status Date / Time No Known Allergies Allergy Verified 10/28/22 14:14 [facility] Disclaimer: The information contained in this section may have been updated after the patient was seen, as this information can be updated by other users. Social History Smoking Status: Current every day smoker tobacco type: cigarettes packs per day: 1 alcohol intake: never current occupational status: other Travel in the last 8 weeks: None ROS Obtained: Yes All systems reviewed & no additional complaints except as documented Constitutional Constitutional: Reports chills and Reports fever(s) Eyes Eyes: Denies eye discharge ENT Ears, Nose, Mouth, and Throat: Reports as per HPI Cardiovascular Cardiovascular: Denies chest pain Respiratory Respiratory: Denies chest congestion and Reports cough Gastrointestinal Gastrointestingal: Reports nausea; Denies abdominal pain, constipation, cramping, diarrhea or vomiting Musculoskeletal Musculoskeletal: Denies arthralgias Integumentary/Breasts Skin/Breast: Denies rash Neurologic Neurologic: Denies paresthesias Physical Exam General General appearance: alert and in no apparent distress Head Head exam: atraumatic
[2022-10-28 14:12] VITALS: BP 114/70; PULSE 100; RESP 16; TEMP 37.4; O2SAT 96; BMI 36.3
[2022-10-28 14:14] LABS: UTC Strep Screen (Rapid) Negative (Negative)
[2022-10-28 14:44] LABS: Coronavirus 19, PCR Not Detected (NotDetected); Influenza B, PCR Not Detected (NotDetected)
[2022-10-28 15:01] VITALS: BP 114/70; PULSE 90; RESP 16; TEMP 37.4
[2022-10-28 15:22] LABS: Influenza A, PCR Detected (NotDetected)
== END 2022-10-28 15:05 | disposition home or self-care (01) ==
PROVIDERS: Emergency Provider Nurse Practitioner Family; PCP Family Medicine
DX: J10.1 Influenza due to other identified influenza virus with other respiratory manifestations (principal)
CPT/HCPCS: 87880; 99212; C9803; G0463; U0003; U0005

== ENCOUNTER 2023-04-19 07:41 | Emergency (ER) | payer BC, SELFPAY ==
[2023-04-19 07:43] VITALS: BP 133/92; PULSE 100; RESP 16; TEMP 36.4; O2SAT 99; BMI 33.6
--- NOTE | 2023-04-19 08:00 | HMH.EDGENADL ---
Discharge Plan Disposition Patient Disposition: Home, Self-Care Prescriptions Prescriptions: New sulfamethoxazole-trimethoprim [Bactrim DS] 800-160 mg tablet 1 tab PO BID 10 Days Qty: 20 0RF No Action glimepiride 4 mg tablet 4 mg PO DAILY meloxicam 7.5 mg tablet 7.5 mg PO DAILY 30 Days Qty: 30 2RF potassium chloride 20 MEQ tablet extended release 1 tab PO QID Label Comments: TAKE 1 TABLET BY MOUTH 4 TIMES DAILY famotidine 20 MG tablet 20 mg PO BID 30 Days Qty: 60 2RF metformin 500 MG tablet 500 mg PO BID empagliflozin 25 MG tablet 25 mg PO DAILY Label Comments: TAKE 1 TABLET BY MOUTH ONCE DAILY FOR 30 DAYS azithromycin [Zithromax] 250 mg tablet 250 mg PO UD DOSE PK Qty: 6 0RF Rx Instructions: Take two (2) tablets today, then one (1) tablet days #2 thru #5 paipvxhvnfyotrl-ewdzvcqbz-FU [Bromfed DM] 2-30-10 mg/5 mL Syrup 5 ml PO Q6H PRN (Reason: Cough) Qty: 240 0RF oseltamivir [Tamiflu] 75 mg capsule 75 mg PO BID Qty: 10 0RF Referrals Follow up/Referrals: Cailin Burk APRN [Primary Care Provider] - See instructions Clinical Impressions Clinical Impression: Cellulitis of hip, right, Abscess of hip, right Instructions Patient Instructions: DI for Skin Abscess Discharge ED Provider: Quintin De Los Santos General Adult HPI General Chief complaint: Skin/Abscess/Foreign Body Stated complaint: Red spot on R hip, warm to touch Time Seen by Provider: 04/19/23 07:46 Mode of Arrival: Ambulatory Source of Information: Patient Limitations: No Limitations Description of Symptoms (Recalled from ER Triage Doc. by RN): Patient presents to ED with complaints of a reddened place on the right outer upper thigh that appeared 1 week ago. Patient denies fever [employer] and denies any drainage from site. Redness, swelling, and a scab over the area noted. History of Present Illness HPI narrative: Patient is a 32-year-old female presenting with right lateral thigh erythema fluctuance that is been going on for 1 week. She has an abscess history in the past but has been in the remote past. She has no antibiotic allergies no fevers chills or other concerns today. Pain is mild. Related Data Home Medications Medication Instructions Recorded Confirmed potassium chloride 20 mEq 1 tab PO QID Supplement 07/26/19 07/05/21 tablet,extended release empagliflozin 25 mg tablet 25 mg PO DAILY Diabetes 04/06/21 07/05/21 metformin 500 mg tablet 500 mg PO BID Diabetes 04/06/21 07/05/21 glimepiride 4 mg tablet 4 mg PO DAILY 07/05/21 07/05/21 Previous Rx's Medication Instructions Recorded famotidine 20 mg tablet 20 mg PO BID 30 days #60 tabs 06/17/21 meloxicam 7.5 mg tablet 7.5 mg PO DAILY pain 30 days #30 07/05/21 tabs azithromycin 250 mg tablet 250 mg PO UD DOSE PK #6 tabs 10/28/22 (Zithromax) ajdjdsjgkjrofpq-mzzcbsljqimiugs-XC 5 ml PO Q6H PRN Cough #240 mL 10/28/22 2 mg-30 mg-10 mg/5 mL oral syrup (Bromfed DM) oseltamivir 75 mg capsule (Tamiflu) 75 mg PO BID #10 caps 10/28/22 sulfamethoxazole 800 1 tab PO BID 10 days #20 tabs 04/19/23 mg-trimethoprim 160 mg tablet (Bactrim DS) Allergies Allergy/AdvReac Type Severity Reaction Status Date / Time No Known Allergies Allergy Verified 10/28/22 14:14 [facility] Disclaimer: The information contained in this section may have been updated after the patient was seen, as this information can be updated by other users. Social History Smoking Status: Never smoker alcohol intake: never current occupational status: other Travel in the last 8 weeks: None ROS Obtained: Yes All systems reviewed & no additional complaints except as documented Physical Exam General General appearance: alert Respiratory Respiratory exam: Absent respiratory distress Cardiovascular Cardiovascular exam: Present regular rate; Absent tachycardia Extremities Exam Ext
[2023-04-19 08:28] VITALS: BP 133/92; PULSE 90; RESP 16; TEMP 36.4; O2SAT 99
== END 2023-04-19 08:28 | disposition home or self-care (01) ==
PROVIDERS: Emergency Provider Family Medicine; PCP Nurse Practitioner Family
DX: L02.415 Cutaneous abscess of right lower limb (principal)
CPT/HCPCS: 10060; 99283; 99284

== ENCOUNTER 2023-05-09 15:50 | Emergency (ER) | payer BC, SELFPAY ==
[2023-05-09 16:00] VITALS: BP 130/85; PULSE 91; RESP 18; TEMP 36.9; O2SAT 98; BMI 35.4
--- NOTE | 2023-05-09 16:14 | EXP.UTC ---
Discharge Plan Disposition Patient Disposition: Still a Patient Condition: Good Prescriptions Prescriptions: No Action potassium chloride 20 MEQ tablet extended release 1 tab PO QID Label Comments: TAKE 1 TABLET BY MOUTH 4 TIMES DAILY metformin 500 MG tablet 1,000 mg PO BID Jardiance 25 mg tablet 25 mg PO DAILY Label Comments: TAKE 1 TABLET BY MOUTH ONCE DAILY Ozempic 0.25 mg or 0.5 mg (2 mg/3 mL) pen injector 0.5 mg SQ WEEKLY Label Comments: INJECT 0.5 MG SUBCUTANEOUSLY ONCE A WEEK Referrals Follow up/Referrals: Cailin Burk APRN [Primary Care Provider] - See instructions Discharge ED Provider: Yoana Gonzalez [facility] [place] General Stated complaint: hurts to swallow Mode of Arrival: Ambulatory Source of Information: Patient Limitations: No Limitations Time Seen by Provider: 05/09/23 16:15 Description of Symptoms (Recalled from Triage Doc. by RN): PATIENT STATES SHE FEELS LIKE SOMETHING IS LODGED IN HER THROAT X 3 DAYS. SHE REPORTS IT HURTS TO SWALLOW AND FEELS LIKE FOOD IS GETTING STUCK WHEN SHE EATS HEENT Symptoms (Recalled from RN notes): No Resp Symptoms (Recalled from RN notes): No Skin Symptoms (Recalled from RN notes): No MS Symptoms (Recalled from RN notes): No Functional Status (Recalled from RN notes): WNL History of Present Illness Provider Complaint: Patient states for the last 3 days that she feels like something is lodged in her throat/chest area just below her neck but she had still been able to eat some but got worse last night States since last night when she eats food it feels like it gets stuck and then she will vomit everything back up States that she is able to drink some and it feels like it slow going down but does go down but with food it will not pass and she just vomits it back up States that today it was still no better so she came in Related Data Home Medications Medication Instructions Recorded Confirmed potassium chloride 20 mEq 1 tab PO QID Kidney Disorder 07/26/19 05/09/23 tablet,extended release metformin 500 mg tablet 1,000 mg PO BID Diabetes 04/06/21 05/09/23 empagliflozin 25 mg tablet 25 mg PO DAILY Diabetes 05/09/23 05/09/23 (Jardiance) semaglutide 0.25 mg or 0.5 mg (2 0.5 mg SQ WEEKLY Diabetes 05/09/23 05/09/23 mg/3 mL) subcutaneous pen injector (Ozempic) Allergies Allergy/AdvReac Type Severity Reaction Status Date / Time No Known Allergies Allergy Verified 10/28/22 14:14 Worker's Comp Is this a Worker's Comp case?: No [facility] Disclaimer: The information contained in this section may have been updated after the patient was seen, as this information can be updated by other users. Medical History (Updated 05/09/23 @ 16:08 by Scarlett Ngo RN) Diabetes mellitus, type 2 Surgical History (Updated 05/09/23 @ 16:08 by Scarlett Ngo RN) History of section Social History Smoking Status: Never smoker alcohol intake: never current occupational status: other Travel in the last 8 weeks: None ROS Obtained: Yes All systems reviewed & no additional complaints except as documented and Yes Systems reviewed as appropriate & no additional complaints except as documented Constitutional Constitutional: Reports system reviewed and no additional complaints, except as documented, Reports as per HPI, Denies fever(s) and Denies headache(s) ENT Ears, Nose, Mouth, and Throat: Reports system reviewed and no additional complaints, except as documented, Reports as per HPI and Denies headache(s) Comments: reports throat feels a little irritated Cardiovascular Cardiovascular: Reports system reviewed and no additional complaints, except as documented and Reports as per HPI Respiratory Respiratory: Reports system reviewed and no additional complaints, except as documented and Reports as per HPI Gastrointestinal Gastrointestingal: Reports system reviewed
--- NOTE | 2023-05-09 16:24 | PC.NURSE ---
LOGAN MITCHELL STATED SHE WILL CALL BACK WITH BED ASSIGNMENT
--- NOTE | 2023-05-09 16:24 | PC.NURSE ---
PATIENT SENT TO ER PER Charanjit BENAVIDEZ APRN FOR FURTHER EVALUATION. REPORT GIVEN TO LOGAN MITCHELL BY Charanjit BENAVIDEZ APRN
--- NOTE | 2023-05-09 17:00 | PC.NURSE ---
THIS NURSE SPOKE WITH ER AT THIS TIME TO REQUEST UPDATE ON ER BED ASSIGNMENT FOR PATIENT. BED ASSIGNMENT GIVEN AT THIS TIME. PATIENT AMBULATED TO ER ROOM 11 WITH [facility] STAFF
--- NOTE | 2023-05-09 17:02 | PC.NURSE ---
Patient sent from [facility] without strep swab or xray of soft tissue neck. Patient is slightly aggravated because she ate and drank today fine. Yesterday is when it was worse.
[2023-05-09 17:03] VITALS: BP 113/73; PULSE 83; PULSE 99; RESP 18; TEMP 36.5; TEMP 36.6; O2SAT 98; O2SAT 99; BMI 35.4
--- NOTE | 2023-05-09 17:07 | XR_ITS ---
PROCEDURE INFORMATION: Exam: XR Soft Tissue Neck Exam date and time: 05/09/2023 5:55 PM Age: 32 years old Clinical indication: Other: R/O fb; Additional info: Possible fb in throat TECHNIQUE: Imaging protocol: Radiologic exam of the soft tissues of the neck. Total images: 2 COMPARISON: CR XR CHEST 2V 07/21/2020 12:42 PM FINDINGS: Airway: Normal. No abnormal narrowing. Soft tissues: No radiopaque foreign body. Normal epiglottis. No retropharyngeal or prevertebral soft tissue swelling. Cervical fascial planes are maintained. Bones/joints: Straightened cervical lordosis from position or spasm. Minimal anterolisthesis C2-C3 and C3-C4 likely positional. Other findings: Upper lungs are clear. IMPRESSION: 1. No acute findings. 2. No radiopaque foreign body.
--- NOTE | 2023-05-09 17:23 | CT_ITS ---
PROCEDURE INFORMATION: Exam: CT Chest With Contrast; Diagnostic Exam date and time: 05/09/2023 6:13 PM Age: 32 years old Clinical indication: Other: R/O fb; Additional info: Pain with swallowing; Distal esophagus TECHNIQUE: Imaging protocol: Diagnostic computed tomography of the chest with contrast. Total images: 255 Radiation optimization: All CT scans at this facility use at least one of these dose optimization techniques: automated exposure control; mA and/or kV adjustment per patient size (includes targeted exams where dose is matched to clinical indication); or iterative reconstruction. Contrast material: ISOVUE; Contrast volume: 75 ml; Contrast route: IV; REPORTING DATA: Count of CT and Cardiac NM exams in prior 12 months: This patient has received 0 known CTs and 0 known cardiac nuclear medicine studies in the 12 months prior to the current study. COMPARISON: CR XR CHEST 2V 07/21/2020 12:42 PM FINDINGS: Lungs: Trachea and main bronchi are patent. Lungs are clear and adequately expanded with mild respiratory motion artifact. Scattered areas of hyperlucency implying air trapping/reactive airway disease. Mild bronchial wall thickening. No pulmonary mass. Calcified and noncalcified left upper lobe nodules most likely granulomatous. There are few additional scattered micronodules both lungs. Pleural spaces: Unremarkable. No pneumothorax. No pleural effusion. Heart: Normal heart size. Trace pericardial fluid. Coronary arteries: No significant coronary artery calcifications. Mediastinal space: Mild esophageal wall thickening along the entire course of the thoracic soft gas with adjacent edema. No radiopaque foreign body no intramural or adjacent extraluminal gas. Lymph nodes: Calcified prevascular mediastinal and left hilar lymph nodes compatible with remote granulomatous disease. Nonspecific mildly prominent bilateral axillary lymph nodes. Vasculature: Thoracic aorta is normal in course and caliber without aneurysm or dissection. Liver: Hepatic steatosis. Spleen: Multiple calcified splenic granuloma. Intraperitoneal space: No acute process in the upper abdomen. Bones/joints: No acute osseous abnormality. Mild degenerative changes thoracic spine. No concerning bone lesions. Soft tissues: Unremarkable. IMPRESSION: 1. Diffuse esophageal wall thickening with adjacent posterior mediastinal edema implying esophagitis. No complicating features. No secondary signs for perforation. 2. No radiopaque foreign body. 3. Mild bronchial wall thickening with scattered areas of air trapping implying reactive airway disease. 4. Remote calcified granulomatous disease. 5. Scattered noncalcified bilateral micronodules, most likely granulomatous. If the patient does not have known cancer, follow up should be based on clinical information because of the low risk of cancer in this age group. (Reference: Maritza) 6. Nonspecific mildly prominent bilateral axillary lymph nodes. Recommend follow-up axillary ultrasound in 3 months and if abnormal lymph nodes persist at that time recommend biopsy. 7. Hepatic steatosis. REFERENCES: Maritza Kumari et al. Guidelines for Management of Incidental Pulmonary Nodules Detected on CT Images: From the Fleischner Society 2017. Radiology. 2017;284(1):228-243.
[2023-05-09 17:31] LABS: Basophils # 0.1 K/mm3 (0-0.2); Basophils % 0.4 % (0.1-2.0); Eosinophils # 0.3 K/mm3 (0.0-0.4); Eosinophils % 1.5 % (0.1-12.0); Hematocrit 50.3 % (37.0-47.0); Hemoglobin 17.3 g/dL (12.2-16.2); Lymphocytes # 4.8 K/mm3 (0.7-4.5); Lymphocytes % 26.8 % (10-50); Mean Corpuscular HGB Conc 34.3 g/dL (31.8-35.4); Mean Corpuscular Hemoglobin 29.9 pg (27.0-31.2); Mean Corpuscular Volume 87.1 fl (81-99); Mean Platelet Volume 8.3 fl (7.4-10.4); Monocytes # 0.8 K/mm3 (0.1-1.0); Monocytes % 4.5 % (1.7-9.3); Neutrophils # 11.9 K/mm3 (1.8-7.8); Neutrophils % 66.8 % (37.0-80.0); Platelet Count 273 K/mm3 (142-424); Red Blood Count 5.78 M/mm3 (4.20-5.40); Red Cell Distribution Width 14.1 % (11.5-17.5); White Blood Count 17.8 K/mm3 (4.8-10.8)
[2023-05-09 17:35] LABS: MANUAL DIFFERENTIAL MANUAL DIFFERENTIAL (MANUAL DIFF)
[2023-05-09 17:36] LABS: Strep Scrn Group A (Rapid) Negative (Negative)
[2023-05-09 17:43] LABS: Chloride 91 mmol/L (98-107); Sodium 138 mmol/L (136-145)
--- NOTE | 2023-05-09 17:43 | HMH.EDGENADL ---
Discharge Plan Disposition Patient Disposition: Home, Self-Care Condition: Good Prescriptions Prescriptions: New famotidine [Pepcid] 20 mg tablet 20 mg PO BID 30 Days Qty: 60 0RF omeprazole 40 mg capsule,delayed release(DR/EC) 40 mg PO DAILY 42 Days Qty: 42 0RF No Action potassium chloride 20 MEQ tablet extended release 1 tab PO QID Label Comments: TAKE 1 TABLET BY MOUTH 4 TIMES DAILY metformin 500 MG tablet 1,000 mg PO BID Jardiance 25 mg tablet 25 mg PO DAILY Label Comments: TAKE 1 TABLET BY MOUTH ONCE DAILY Ozempic 0.25 mg or 0.5 mg (2 mg/3 mL) pen injector 0.5 mg SQ WEEKLY Label Comments: INJECT 0.5 MG SUBCUTANEOUSLY ONCE A WEEK Referrals Follow up/Referrals: Ray Tipton MD [Staff Physician] - See instructions (Needs upper EGD) Cailin Burk APRN [Primary Care Provider] - See instructions Activity Restrictions/Add. Instructions Additional Instructions/Restrictions: Take acid medications as prescribed. He can buy rhgj-vpf-earatcc Maalox to help with some symptoms. Smaller, pur?ed, bite-size foods. If you have any other concerning signs or symptoms, return to the ER for further evaluation. Clinical Impressions Clinical Impression: Esophagitis Discharge ED Provider: Sánchez Degroot General Adult [facility] General Chief complaint: Dental/Oral Stated complaint: hurts to swallow Time Seen by Provider: 05/09/23 16:15 Mode of Arrival: Ambulatory Source of Information: Patient and Medical Record Limitations: No Limitations Description of Symptoms (Recalled from ER Triage Doc. by RN): sent from [facility] for further evaluation for possible food bolus. Pt denies eating anything that could get stuck in her throat, states yesterday that she felt like something was stuck between her breast bone and make her self vomit to get relief. States she has been able to eat and drink today but she needs to take small amounts at a time. History of Present Illness HPI narrative: Is a 32-year-old female with history of diabetes presenting with difficulty swallowing. Patient states this started happening 1 day prior to arrival. She swallowed food and felt to get stuck, so she had to make herself vomit in order to expel the food. Since that time, has had only trouble with solid foods. Liquids go down just fine. Denies fevers, chills, hematemesis, difficulty breathing, throat swelling, or any other concern concerning symptoms. Pain is mild in intensity and does not radiate Related Data Home Medications Medication Instructions Recorded Confirmed potassium chloride 20 mEq 1 tab PO QID Kidney Disorder 07/26/19 05/09/23 tablet,extended release metformin 500 mg tablet 1,000 mg PO BID Diabetes 04/06/21 05/09/23 empagliflozin 25 mg tablet 25 mg PO DAILY Diabetes 05/09/23 05/09/23 (Jardiance) semaglutide 0.25 mg or 0.5 mg (2 0.5 mg SQ WEEKLY Diabetes 05/09/23 05/09/23 mg/3 mL) subcutaneous pen injector ([employer]) Previous Rx's Medication Instructions Recorded famotidine 20 mg tablet (Pepcid) 20 mg PO BID 30 days #60 tabs 05/09/23 omeprazole 40 mg capsule,delayed 40 mg PO DAILY 6 weeks #42 caps 05/09/23 release Allergies Allergy/AdvReac Type Severity Reaction Status Date / Time No Known Allergies Allergy Verified 10/28/22 14:14 [facility] Disclaimer: The information contained in this section may have been updated after the patient was seen, as this information can be updated by other users. Medical History (Updated 05/09/23 @ 19:32 by Sánchez Degroot MD) Diabetes mellitus, type 2 Surgical History (Updated 05/09/23 @ 16:08 by Scarlett Ngo RN) History of section Social History Smoking Status: Current every day smoker tobacco type: cigarettes packs per day: 1 alcohol intake: never current occupational status: other Travel in the last 8 weeks: None ROS Obtained: Yes All
[2023-05-09 17:46] LABS: Anion Gap 14.3 mEq/L (5-15); Blood Urea Nitrogen 11 mg/dl (7-17); Carbon Dioxide 35 mmol/L (22.0-30.0); Creatinine Clearance Estimated 164 mL/min (50-200); Estimated Glomerular Filt Rate 96 ml/min (>60); GFR (African American) 117 ML/MIN (>60); Glucose 162 mg/dl (74-100); HCG Qualitative, Serum Negative (Negative)
[2023-05-09 17:52] LABS: Potassium 2.3 mmoL/L (3.5-5.1)
--- NOTE | 2023-05-09 17:53 | PC.NURSE ---
potassium 2.3. MD aware
--- NOTE | 2023-05-09 18:10 | PC.NURSE ---
ROUNDED ON PT NOTHING NEEDED AT THIS TIME, TAP MORENO AT BS
--- NOTE | 2023-05-09 18:16 | PC.NURSE ---
PT ARRIVED BACK TO ROOM FROM RAD
[2023-05-09 18:38] VITALS: BP 111/74; PULSE 84; O2SAT 97
[2023-05-09 18:44] LABS: Eosinophils % 1 % (0-3); Lymphocytes % 30 % (10-50); Monocytes % 2 % (2-9); Neutrophils % 67 % (42-76); Platelet Estimate Normal; RBC Morphology Normal; Total Cells Counted 100
[2023-05-09 19:00] VITALS: BP 121/79; PULSE 87; O2SAT 98
--- NOTE | 2023-05-09 19:23 | PC.NURSE ---
UPDATED PT THAT SCANS ARE BACK ONCE ER WAS FINISHED WITH OTHER PT I WOULD LET HIM KNOW
[2023-05-09 19:33] VITALS: BP 145/82; PULSE 86; RESP 18; TEMP 36.8; O2SAT 98
== END 2023-05-09 19:42 | disposition home or self-care (01) ==
LOC: UTC 16:32 → ER 17:01
PROVIDERS: Emergency Provider Emergency Medicine; PCP Nurse Practitioner Family
DX: K20.90 Esophagitis, unspecified without bleeding (principal); E87.6 Hypokalemia; E11.65 Type 2 diabetes mellitus with hyperglycemia; F17.210 Nicotine dependence, cigarettes, uncomplicated; Z79.84 Long term (current) use of oral hypoglycemic drugs
CPT/HCPCS: 70360; 71260; 80048; 84703; 85007; 85025; 87430; 96361; 96365; 99284; 99285; Q9967

== ENCOUNTER 2023-08-25 07:32 | Observation (INO) | payer BC, SELFPAY ==
[2023-08-25] VITALS (11 sets, daily range): BP systolic 91–131; BP diastolic 50–78; PULSE 70–96; RESP 12–20; TEMP 36.7–37.1; O2SAT 95–98; BMI 29.2; BMI 33.6; BMI 36.8
--- NOTE | 2023-08-25 07:33 | ECG_ITS ---
APPROVED REPORT Exam: Resting ECG HR:111 bpm ECG Measurements Heart Rate 111 AXES OH 137 P 61 QRSd 94 QRS 82 QT 328 T 47 QTc 393 Conclusion SINUS TACHYCARDIA NONSPECIFIC ST & T-WAVE ABNORMALITY ABNORMAL RHYTHM ECG UNCONFIRMED REPORT Electronically signed by : Jabier Muse MD 08/25/2023 19:38:43
--- NOTE | 2023-08-25 07:34 | PC.NURSE ---
Dr. Olvera at bedside
--- NOTE | 2023-08-25 07:38 | CT_ITS ---
FINAL REPORT TECHNIQUE: Postcontrast axial images of the chest were performed in a CTA protocol. This study was performed with techniques to keep radiation doses as low as reasonably achievable, (ALARA). Individualized dose reduction technique using automated exposure control or adjustment of mA and/or kV according to the patient's size were employed. CLINICAL HISTORY: Chest pain, tachy, additional throat burning COMPARISON: 05/09/2023 FINDINGS: Again seen is diffuse esophageal wall thickening, favor inflammatory. The heart is normal in size. There are multiple mediastinal lymph nodes which are partially calcified as well as multiple mildly enlarged axillary lymph nodes, all of which are stable from prior exam and nonspecific. No pleural or pericardial effusion is identified. The thoracic aorta is normal in caliber with no focal aneurysm or dissection identified. There is no filling defect to suggest pulmonary embolism. There is diffuse bronchial wall thickening consistent with bronchitis or reactive airways disease with patchy areas of air trapping, similar to prior exam. The images of the upper abdomen demonstrate fatty infiltration of the liver with hepatomegaly. IMPRESSION: No evidence for PE on this exam. Stable bronchial wall thickening with air trapping. Stable adenopathy, favor reactive. Stable esophageal wall thickening. Reviewed, Interpreted and Dictated by Ray Guillermo III, MD Transcribed by Rita Patricia Authenticated and . [facility]
--- NOTE | 2023-08-25 07:40 | HMH.EDGENADL ---
Discharge Plan Disposition Patient Disposition: Admitted Chief Complaint: Chest Pain Prescriptions Prescriptions: No Action potassium chloride 20 MEQ tablet extended release 1 tab PO QID Patient Comments: TAKE 1 TABLET BY MOUTH 4 TIMES DAILY omeprazole 40 mg capsule,delayed release(DR/EC) 40 mg PO DAILY metformin 500 MG tablet 1,000 mg PO BID Jardiance 25 mg tablet 25 mg PO DAILY Patient Comments: TAKE 1 TABLET BY MOUTH ONCE DAILY Ozempic 0.25 mg or 0.5 mg (2 mg/3 mL) pen injector 0.5 mg SQ WEEKLY Patient Comments: INJECT 0.5 MG SUBCUTANEOUSLY ONCE A WEEK famotidine [Pepcid] 20 mg tablet 20 mg PO BID 30 Days Qty: 60 0RF Referrals Follow up/Referrals: Cailin Burk APRN [Primary Care Provider] - See instructions Clinical Impressions Clinical Impression: Acute hypokalemia, Acute hyperglycemia Discharge ED Provider: Chris Olvera General Adult HPI General Chief complaint: Chest Pain Stated complaint: Chest Pain Time Seen by Provider: 08/25/23 07:37 History of Present Illness HPI narrative: Patient is a 32-year-old female with past medical history of Bartter syndrome who presents emergency department for evaluation of chest pain. Onset was acute, over the last 48 hours, substernal, no significant radiation. It is worse with p.o. intake. Patient has been previously diagnosed with presumed esophagitis and has yet to follow-up for further evaluation. No sick contacts. No vomiting or diarrhea. Slight associated shortness of breath. No other acute complaints at this time. Related Data Home Medications Medication Instructions Recorded Confirmed potassium chloride 20 mEq 1 tab PO QID Kidney Disorder 07/26/19 08/25/23 tablet,extended release metformin 500 mg tablet 1,000 mg PO BID Diabetes 04/06/21 08/25/23 empagliflozin 25 mg tablet 25 mg PO DAILY Diabetes 05/09/23 08/25/23 (Jardiance) semaglutide 0.25 mg or 0.5 mg (2 0.5 mg SQ WEEKLY Diabetes 05/09/23 08/25/23 mg/3 mL) subcutaneous pen injector (Ozempic) omeprazole 40 mg capsule,delayed 40 mg PO DAILY gerd 08/25/23 08/25/23 release Previous Rx's Medication Instructions Recorded famotidine 20 mg tablet (Pepcid) 20 mg PO BID 30 days #60 tabs 05/09/23 Allergies Allergy/AdvReac Type Severity Reaction Status Date / Time No Known Allergies Allergy Verified 10/28/22 14:14 [facility] Disclaimer: The information contained in this section may have been updated after the patient was seen, as this information can be updated by other users. Medical History (Updated 08/25/23 @ 09:46 by Chris Olvera MD) Diabetes mellitus, type 2 Surgical History (Updated 05/09/23 @ 16:08 by Scarlett Ngo RN) History of section Social History Smoking Status: Current every day smoker tobacco type: cigarettes packs per day: 1 alcohol intake: never current occupational status: other Travel in the last 8 weeks: None ROS Obtained: Yes Systems reviewed as appropriate & no additional complaints except as documented Physical Exam General General appearance: alert and in no apparent distress Head Head exam: atraumatic and normocephalic Eye Eye exam: Present PERRL and EOMI ENT ENT exam: Present normal oropharynx and mucous membranes moist Neck Neck exam: Present normal inspection Chest Chest inspection: Present normal inspection and symmetric chest wall rise Respiratory Respiratory exam: Present normal lung sounds bilaterally; Absent respiratory distress Cardiovascular Cardiovascular exam: Present normal rhythm and tachycardia Abdominal Exam Abdominal exam: Present soft; Absent tenderness Extremities Exam Extremities exam: Present normal inspection Neurological Exam Neurological exam: Present alert Psychiatric Psychiatric exam: Present normal affect Skin Skin exam: Present warm and dry Medical Decisio
[2023-08-25 07:56] LABS: Basophils # 0.1 K/mm3 (0-0.2); Basophils % 0.7 % (0.1-2.0); Eosinophils # 0.3 K/mm3 (0.0-0.4); Eosinophils % 1.9 % (0.1-12.0); Hematocrit 47.5 % (37.0-47.0); Hemoglobin 16.2 g/dL (12.2-16.2); Lymphocytes # 4.6 K/mm3 (0.7-4.5); Lymphocytes % 29.7 % (10-50); Mean Corpuscular HGB Conc 34.2 g/dL (31.8-35.4); Mean Corpuscular Hemoglobin 30.7 pg (27.0-31.2); Mean Corpuscular Volume 89.9 fl (81-99); Mean Platelet Volume 8.5 fl (7.4-10.4); Monocytes # 0.8 K/mm3 (0.1-1.0); Monocytes % 4.9 % (1.7-9.3); Neutrophils # 9.7 K/mm3 (1.8-7.8); Neutrophils % 62.7 % (37.0-80.0); Platelet Count 267 K/mm3 (142-424); Red Blood Count 5.28 M/mm3 (4.20-5.40); Red Cell Distribution Width 14.1 % (11.5-17.5); White Blood Count 15.5 K/mm3 (4.8-10.8)
[2023-08-25 08:00] LABS: MANUAL DIFFERENTIAL MANUAL DIFFERENTIAL (MANUAL DIFF)
[2023-08-25 08:05] LABS: Chloride 92 mmol/L (98-107)
[2023-08-25 08:06] LABS: Sodium 134 mmol/L (136-145)
[2023-08-25 08:09] LABS: Alanine Aminotransferase 30 U/L (12-78); Albumin/Globulin Ratio 1.1 (1.1-1.8); Alkaline Phosphatase 117 U/L (38-126); Anion Gap 12.1 mEq/L (5-15); Aspartate Amino Transferase 27 U/L (14-36); Bilirubin,Total 0.4 mg/dl (0.2-1.3); Blood Urea Nitrogen 13 mg/dl (7-17); Carbon Dioxide 32 mmol/L (22.0-30.0); Creatinine Clearance Estimated 156 mL/min (50-200); Estimated Glomerular Filt Rate 96 ml/min (>60); GFR (African American) 117 ML/MIN (>60); Globulin 3.5 g/dL (1.3-3.2); Lipase 160 U/L (23-300); Total Protein,Serum 7.5 g/dl (6.3-8.2)
[2023-08-25 08:18] LABS: HCG Qualitative, Serum Negative (Negative)
[2023-08-25 08:20] LABS: Glucose 403 mg/dl (74-100); Potassium 2.1 mmoL/L (3.5-5.1)
[2023-08-25 08:21] LABS: Troponin I < 0.01 ng/ml (0.00-0.034)
--- NOTE | 2023-08-25 08:22 | PC.NURSE ---
DR STACK AT BEDSIDE TO UPDATE PT
--- NOTE | 2023-08-25 08:30 | PC.NURSE ---
URINE AND LACTIC COLLECTED
--- NOTE | 2023-08-25 08:33 | PC.NURSE ---
PT TO CT
[2023-08-25 08:40] LABS: Microscopic, Urine URINE MICROSCOPIC (MICROSCOPIC)
--- NOTE | 2023-08-25 08:40 | PC.NURSE ---
RESPIRATORY NOTIFIED OF VBG ORDER
[2023-08-25 08:43] LABS: Platelet Estimate Normal; RBC Morphology Normal; Total Cells Counted 100
[2023-08-25 08:47] LABS: Acetone, Serum (Rapid) None Detected (None Detect)
[2023-08-25 08:48] LABS: Magnesium 1.6 mg/dl (1.6-2.3)
[2023-08-25 08:48] LABS: Appearance,Urine CLEAR (Clear); Bilirubin,Urine Negative (Negative); Blood, Urine Negative (Negative); Color,Urine YELLOW (Yellow); Glucose,Urine (UA) 3+ (Negative); Ketones,Urine Negative (Negative); Leukocyte Esterase,Urine Negative (Negative); Nitrate,Urine Negative (Negative); Protein,Urine Negative (Negative); Specific Gravity, Urine 1.015 (1.005-1.030); Urobilinogen,Urine 0.2 EU/dl (0.2)
[2023-08-25 08:52] LABS: VBG Base Excess 1.2 mmol/L (-2.4-2.3); VBG HCO3 26.2 mmol/L (23-30); VBG Oxygen Saturation 98.7 % (50-70); VBG PCO2 44.2 mmol/L (35-51); VBG PH 7.39 mmol/L (7.31-7.41); VBG PO2 157.9 mmol/L (28-40); VBG Total CO2 27.5 mmol/L (23-27)
[2023-08-25 08:54] LABS: Lymphocytes % 28 % (10-50); Neutrophils % 62 % (42-76)
[2023-08-25 08:55] LABS: Eosinophils % 2 % (0-3); Macrocytosis 1+; Monocytes % 7 % (2-9)
[2023-08-25 09:01] LABS: Bacteria,Urine Trace /lpf
--- NOTE | 2023-08-25 09:28 | PC.NURSE ---
Rounded on pt. No needs voiced at this time. Call light within reach.
--- NOTE | 2023-08-25 09:38 | PC.NURSE ---
Dr. Olvera at BS to update pt on POC
--- NOTE | 2023-08-25 09:41 | PC.NURSE ---
DR STACK SPEAKING WITH DR PÉREZ
--- NOTE | 2023-08-25 09:43 | PC.NURSE ---
PT ADMITTED TO DR PÉREZ
--- NOTE | 2023-08-25 09:44 | PC.NURSE ---
CARE MANAGEMENT NOTIFIED OF ADMISSION
--- NOTE | 2023-08-25 09:50 | HMH.PHAINT1 ---
Pharmacy Intervention Comments: MEDICATION RECONCILIATION COMPLETED ON PATIENT USING EXTERNAL FILL HISTORY FROM PHARMACY. -VICTOR M ROA, PATRICIAD
--- NOTE | 2023-08-25 10:03 | PC.NURSE ---
Checked on pt she was sleeping in bed call light at bs
--- NOTE | 2023-08-25 10:07 | PC.NURSE ---
Dr. Olvera would like another VBG 1 hr from the time BiPap was started, order placed for 1044
--- NOTE | 2023-08-25 10:11 | PC.NURSE ---
arrived to floor by stretcher from ED
--- NOTE | 2023-08-25 11:33 | EXP.HP ---
History of Present Illness *Admission Date: 08/25/23 *Reason for visit:: Weakness, chest pain *History of present illness: Ms. Weston is a 32-year-old female with history of Bartter syndrome, hypokalemia, diabetes. She presented to the ER because of sensation of difficulty swallowing and chest pain. Had an episode similar several months ago that self resolved. Symptoms have worsened over the past 48 hours. Denies any referral of pain to arm or neck. Pain worse with p.o. intake. Has yet to have outpatient follow-up or work-up for esophagitis (previously diagnosed). Denies any vomiting, diarrhea, shortness of breath. Also feels weak. Reports she has not been consistent taking her potassium supplementation due to work schedule lately. Feels more fatigued. On work-up in the ER, found to have profound hypokalemia with potassium level of 2.1. Also hypomagnesemic. Necessitating significant repletion. Glucose elevated at 400. ER consulted medicine for admission for electrolyte replacement and addressing her hyperglycemia. On arrival to the floor, patient is stable on room air. Afebrile. Resting comfortably in bed. No acute distress. [facility] Disclaimer: The information contained in this section may have been updated after the patient was seen, as this information can be updated by other users. Medical History (Updated 08/25/23 @ 13:08 by Leland Purvis MD) Bartter syndrome Diabetes mellitus, type 2 Surgical History History of section Family History No significant family history Social History Smoking Status: Current every day smoker tobacco type: cigarettes packs per day: 1 alcohol intake: never current occupational status: other Travel in the last 8 weeks: None Review of Systems Review of Systems Review of systems (narrative): 14 point review of systems performed, pertinent positives and negatives as per HPI Meds Home Medications and Allergies Home Medications Medication Instructions Recorded Confirmed Type potassium chloride 20 mEq 20 meq PO QID Potassium Supplement 07/26/19 08/25/23 History tablet,extended release metformin 500 mg tablet 1,000 mg PO BIDWMEAL Diabetes 04/06/21 08/25/23 History empagliflozin 25 mg tablet 25 mg PO DAILY Diabetes 05/09/23 08/25/23 History (Jardiance) semaglutide 0.25 mg or 0.5 mg (2 0.5 mg SQ WEEKLY Diabetes 05/09/23 08/25/23 History mg/3 mL) subcutaneous pen injector (Ozempic) famotidine 20 mg tablet (Pepcid) 20 mg PO BID Acid Reflux 08/25/23 08/25/23 History omeprazole 40 mg capsule,delayed 40 mg PO DAILY Acid Reflux 08/25/23 08/25/23 History release New Prescriptions to Start Prescriptions: Allergies Allergy/AdvReac Type Severity Reaction Status Date / Time No Known Allergies Allergy Verified 08/25/23 10:20 Exam Data for Last 24 hours Vital signs and Labs for Last 24 Hours: Temp Pulse Resp BP Pulse Ox O2 Del Method 98.2 F 80 18 98/59 L 95 Room Air 08/25/23 10:16 08/25/23 10:16 08/25/23 10:16 08/25/23 10:16 08/25/23 10:16 08/25/23 10:16 Laboratory Results - last 24 hr 08/25/23 07:35: WBC 15.5 H, RBC 5.28, Hgb 16.2, Hct 47.5 H, MCV 89.9, MCH 30.7, MCHC 34.2, RDW 14.1, Plt Count 267, MPV 8.5, Neut % (Auto) 62.7, Lymph % (Auto) 29.7, [place] % (Auto) 4.9, Eos % (Auto) 1.9, Baso % (Auto) 0.7, Neut # (Auto) 9.7 H, Lymph # (Auto) 4.6 H, [place] # (Auto) 0.8, Eos # (Auto) 0.3, Baso # (Auto) 0.1, Total Counted 100, Neutrophils % (Manual) 62, Band Neutrophils % 3.0, Lymphocytes % (Manual) 28, Monocytes % (Manual) 7, Eosinophils % (Manual) 2, Platelet Estimate Normal, RBC Morphology Normal, Macrocytosis 1+, Sodium 134 L, Potassium 2.1 L*, Chloride 92 L, Carbon Dioxide 32 H, Anion Gap 12.1, BUN 13, Creatinine 0.70, Estimated Creat Clear 156, Estimated GFR 96, Est GFR (
[2023-08-25 12:04] LABS: POC Glucose,Bedside 193 (70-110)
[2023-08-25 12:16] LABS: Hemoglobin A1C 7.5 % (4.0-6.0)
[2023-08-25 14:47] LABS: Anion Gap 7.5 mEq/L (5-15); Blood Urea Nitrogen 10 mg/dl (7-17); Calcium 8.7 mg/dl (8.4-10.2); Carbon Dioxide 34 mmol/L (22.0-30.0); Chloride 99 mmol/L (98-107); Creatinine Clearance Estimated 170 mL/min (50-200); Estimated Glomerular Filt Rate 96 ml/min (>60); GFR (African American) 117 ML/MIN (>60); Glucose 202 mg/dl (74-100); Magnesium 1.9 mg/dl (1.6-2.3); Sodium 138 mmol/L (136-145)
[2023-08-25 15:31] LABS: Potassium 2.5 mmoL/L (3.5-5.1)
[2023-08-25 16:59] LABS: POC Glucose,Bedside 250 (70-110)
[2023-08-25 20:22] LABS: POC Glucose,Bedside 213 (70-110)
[2023-08-26] VITALS: BP 107/72; PULSE 80; RESP 18; TEMP 37; O2SAT 97
[2023-08-26 00:06] LABS: Anion Gap 5.2 mEq/L (5-15); Blood Urea Nitrogen 10 mg/dl (7-17); Calcium 8.7 mg/dl (8.4-10.2); Carbon Dioxide 37 mmol/L (22.0-30.0); Chloride 102 mmol/L (98-107); Creatinine Clearance Estimated 170 mL/min (50-200); Estimated Glomerular Filt Rate 96 ml/min (>60); GFR (African American) 117 ML/MIN (>60); Glucose 131 mg/dl (74-100); Magnesium 1.8 mg/dl (1.6-2.3); Potassium 3.2 mmoL/L (3.5-5.1); Sodium 141 mmol/L (136-145)
[2023-08-26 01:00] VITALS: PULSE 85
[2023-08-26 04:00] VITALS: BP 114/65; PULSE 67; PULSE 80; RESP 18; TEMP 36.7; O2SAT 96; BMI 36.6
--- NOTE | 2023-08-26 04:42 | PC.NURSE ---
k level up to 3.2 after k replacement. provider made aware. no new orders received
[2023-08-26 06:09] LABS: POC Glucose,Bedside 133 (70-110)
[2023-08-26 06:33] LABS: Basophils # 0.1 K/mm3 (0-0.2); Basophils % 0.7 % (0.1-2.0); Eosinophils # 0.3 K/mm3 (0.0-0.4); Eosinophils % 2.3 % (0.1-12.0); Hematocrit 48.4 % (37.0-47.0); Hemoglobin 16.1 g/dL (12.2-16.2); Lymphocytes # 4.1 K/mm3 (0.7-4.5); Lymphocytes % 28.5 % (10-50); Mean Corpuscular HGB Conc 33.2 g/dL (31.8-35.4); Mean Corpuscular Hemoglobin 30.3 pg (27.0-31.2); Mean Corpuscular Volume 91.3 fl (81-99); Mean Platelet Volume 8.6 fl (7.4-10.4); Monocytes # 0.7 K/mm3 (0.1-1.0); Monocytes % 5.1 % (1.7-9.3); Neutrophils # 9.1 K/mm3 (1.8-7.8); Neutrophils % 63.3 % (37.0-80.0); Platelet Count 262 K/mm3 (142-424); Red Cell Distribution Width 14.4 % (11.5-17.5); White Blood Count 14.4 K/mm3 (4.8-10.8)
[2023-08-26 06:48] LABS: Chloride 101 mmol/L (98-107)
[2023-08-26 06:49] LABS: Sodium 138 mmol/L (136-145)
[2023-08-26 06:51] LABS: Alanine Aminotransferase 23 U/L (12-78); Alkaline Phosphatase 73 U/L (38-126); Anion Gap 7.7 mEq/L (5-15); Aspartate Amino Transferase 23 U/L (14-36); Bilirubin,Total 0.5 mg/dl (0.2-1.3); Blood Urea Nitrogen 9 mg/dl (7-17); Carbon Dioxide 32 mmol/L (22.0-30.0); Creatinine Clearance Estimated 198 mL/min (50-200); Estimated Glomerular Filt Rate 115 ml/min (>60); GFR (African American) 139 ML/MIN (>60)
[2023-08-26 06:52] LABS: Albumin Level 3.3 g/dl (3.5-5.0); Albumin/Globulin Ratio 1.1 (1.1-1.8); Calcium 8.4 mg/dl (8.4-10.2); Glucose 126 mg/dl (74-100); Magnesium 1.6 mg/dl (1.6-2.3); Total Protein,Serum 6.3 g/dl (6.3-8.2)
[2023-08-26 06:56] LABS: Potassium 2.7 mmoL/L (3.5-5.1)
[2023-08-26 07:31] VITALS: BP 118/71; PULSE 85; RESP 18; TEMP 36.6; O2SAT 96
[2023-08-26 08:00] VITALS: PULSE 85
--- NOTE | 2023-08-26 09:54 | EXP.DC.SUM ---
General Admission date:: 08/25/23 Discharge date: 08/26/23 HPI HPI HPI: Ms. Weston is a 32-year-old female with history of Bartter syndrome, hypokalemia, diabetes. She presented to the ER because of sensation of difficulty swallowing and chest pain. Had an episode similar several months ago that self resolved. Symptoms have worsened over the past 48 hours. Denies any referral of pain to arm or neck. Pain worse with p.o. intake. Has yet to have outpatient follow-up or work-up for esophagitis (previously diagnosed). Denies any vomiting, diarrhea, shortness of breath. Also feels weak. Reports she has not been consistent taking her potassium supplementation due to work schedule lately. Feels more fatigued. On work-up in the ER, found to have profound hypokalemia with potassium level of 2.1. Also hypomagnesemic. Necessitating significant repletion. Glucose elevated at 400. ER consulted medicine for admission for electrolyte replacement and addressing her hyperglycemia. On arrival to the floor, patient is stable on room air. Afebrile. Resting comfortably in bed. No acute distress. Hospital Course Hospital Course Hospital Course: The patient was admitted to the telemetry unit and her potassium was trended. She was provided with potassium replacement therapy and tolerated it well. A CTA of the chest identified esophagitis and she was maintained on PPI therapy. Nursing staff reported she remained afebrile with stable vital signs and saturated appropriately on room air. We recommended an outpatient evaluation with gastroenterology and she was amendable. She identified improvement and inquired about discharge home. I spent 35 minutes in [id number] time with the patient and nursing staff concerning the discharge process. We discussed the admitting diagnoses and hospital course. We discussed identified improvement and the patient's desire to be discharged. We reviewed inpatient studies and imaging. The patient voiced understanding on the importance of follow-up with her primary care provider and GI specialist(s). The patient plans to be compliant with the medication regimen prescribed and follow-up appointments. She understands that she can return to the emergency department with any sudden changes or concerns. Exam Data for Last 24 hours Vital signs and Labs for Last 24 Hours: Temp Pulse Resp BP Pulse Ox O2 Del Method 97.8 F 85 18 118/71 96 Room Air 08/26/23 07:31 08/26/23 07:31 08/26/23 07:31 08/26/23 07:31 08/26/23 07:31 08/26/23 09:00 Laboratory Results - last 24 hr 08/25/23 07:35: Hemoglobin A1c 7.5 H 08/25/23 11:57: POC Glucose 193 H 08/25/23 14:11: Sodium 138, Potassium 2.5 L*, Chloride 99, Carbon Dioxide 34 H, Anion Gap 7.5, BUN 10, Creatinine 0.70, Estimated Creat Clear 170, Estimated GFR 96, Est GFR ( Amer) 117, Glucose 202 H D, Calcium 8.7, Magnesium 1.9 D 08/25/23 16:48: POC Glucose 250 H 08/25/23 20:11: POC Glucose 213 H 08/25/23 23:45: Sodium 141, Potassium 3.2 L D, Chloride 102, Carbon Dioxide 37 H, Anion Gap 5.2, BUN 10, Creatinine 0.70, Estimated Creat Clear 170, Estimated GFR 96, Est GFR ( Amer) 117, Glucose 131 H D, Calcium 8.7, Magnesium 1.8 08/26/23 05:35: WBC 14.4 H, RBC 5.30, Hgb 16.1, Hct 48.4 H, MCV 91.3, MCH 30.3, MCHC 33.2, RDW 14.4, Plt Count 262, MPV 8.6, Neut % (Auto) 63.3, Lymph % (Auto) 28.5, [place] % (Auto) 5.1, Eos % (Auto) 2.3, Baso % (Auto) 0.7, Neut # (Auto) 9.1 H, Lymph # (Auto) 4.1, [place] # (Auto) 0.7, Eos # (Auto) 0.3, Baso # (Auto) 0.1, Sodium 138, Potassium 2.7 L*, Chloride 101, Carbon Dioxide 32 H, Anion Gap 7.7, BUN 9, Creatinine 0.60, Estimated Creat Clear 198, Estimated GFR 115, Est GFR ( Amer) 139, Glucose 126 H, Calcium 8.4, Magnesium 1.6 D, Total Bilirubin 0.5, AST 23, ALT 23, Alkaline Phosphatase 73, Total Protein 6.3, Albumin 3.3 L D, Globulin 3.0, Albumin/Globulin Ratio 1.1 08/26/23 06:01: POC Glucose 133 H I & O for Last 24 hours: Intake & Outp
[2023-08-26 11:28] LABS: Chloride 97 mmol/L (98-107); Potassium 3.2 mmoL/L (3.5-5.1); Sodium 139 mmol/L (136-145)
[2023-08-26 11:31] LABS: Blood Urea Nitrogen 11 mg/dl (7-17); Creatinine Clearance Estimated 169 mL/min (50-200); Estimated Glomerular Filt Rate 96 ml/min (>60); GFR (African American) 117 ML/MIN (>60)
[2023-08-26 11:32] LABS: Anion Gap 12.2 mEq/L (5-15); Calcium 8.9 mg/dl (8.4-10.2); Carbon Dioxide 33 mmol/L (22.0-30.0); Glucose 193 mg/dl (74-100)
--- NOTE | 2023-08-29 16:20 | CARE MANAGER ---
Unable to reach patient via phone to discuss recent discharge. Not able to leave VM, as it was full.
== END 2023-08-26 11:10 | disposition home or self-care (01) ==
LOC: ER 09:49 → 2ND 10:00
PROVIDERS: Family Medicine; Admitting Provider Internal Medicine Adolescent Medicine; Emergency Provider Emergency Medicine; PCP Nurse Practitioner Family; Visit Provider Internal Medicine Adolescent Medicine
DX: E26.81 Bartter's syndrome (principal); E87.6 Hypokalemia; E11.65 Type 2 diabetes mellitus with hyperglycemia; E66.9 Obesity, unspecified; Z68.36 Body mass index [BMI] 36.0-36.9, adult; F17.210 Nicotine dependence, cigarettes, uncomplicated; Z79.84 Long term (current) use of oral hypoglycemic drugs
CPT/HCPCS: 36415; 71275; 80048; 80053; 81001; 82009; 82803; 82962; 83036; 83690; 83735; 84484; 84703; 85007; 85025; 93005; 99291; G0378; J3475; Q9967

== ENCOUNTER 2024-02-23 17:12 | Emergency (ER) | payer BC, SELFPAY ==
[2024-02-23 17:20] VITALS: BP 119/74; PULSE 87; RESP 19; TEMP 36.9; O2SAT 96; BMI 35.3
[2024-02-23 17:45] LABS: UTC Strep Screen (Rapid) Negative (Negative)
--- NOTE | 2024-02-23 17:50 | EXP.UTC ---
Discharge Plan Disposition Patient Disposition: Home, Self-Care Condition: Good Prescriptions Prescriptions: New azithromycin [Zithromax Z-Aaron] 250 mg tablet See Rx Instructions .ROUTE .COMPLEX 5 Days Qty: 6 0RF Rx Instructions: For 250 mg dose pack: take 500 mg today (day 1), then 250 mg for 4 days (days 2-5) No Action potassium chloride 20 MEQ tablet extended release 20 meq PO QID Patient Comments: TAKE 1 TABLET BY MOUTH 4 TIMES DAILY metformin 500 MG tablet 1,000 mg PO BIDWMEAL Jardiance 25 mg tablet 25 mg PO DAILY Patient Comments: TAKE 1 TABLET BY MOUTH ONCE DAILY escitalopram oxalate 5 mg tablet 5 mg PO DAILY Referrals Follow up/Referrals: Bushra Degroot MD [Primary Care Provider] - See instructions Activity Restrictions/Add. Instructions Additional Instructions/Restrictions: *Monitor Temp, Over the counter Motrin or Tylenol as directed/as needed Tylenol every 4 hours and Motrin every 6 hours (as long as your family doctor has told you that you can take it) for fever or pain. and straight to ER if unable to lower temp less than 101.0 after medication given *Warm salt water gargles may help to soothe the throat *Throat Lozenges? *Warm fluids like tea with honey may help to soothe the throat? *Sleep elevated *Humidifier/Vaporizer Your throat swab was sent for culture. Those results are typically sent to your primary care. Be sure to follow up in 2-3 days with your family doctor/primary care physician if no improvement so they can review those result and treat if necessary. If you don?t have a primary care doctor, I recommend you get one but in the mean time, you will have to return to a walk in clinic Follow up IMMEDIATELY for new or worsening symptoms or no Noticeable improvement over the next 48-72 hours. 911 for difficulty breathing or swallowing Clinical Impressions Clinical Impression: Pharyngitis Instructions Patient Instructions: Sore Throat Discharge ED Provider: Yoana Gonzalez [facility] [place] HPI General Stated complaint: sore throat cough Mode of Arrival: Ambulatory Source of Information: Patient Limitations: No Limitations Time Seen by Provider: 02/23/24 17:50 Description of Symptoms (Recalled from Triage Doc. by RN): Pt's symptoms are cough, and sore throat. HEENT Symptoms (Recalled from RN notes): Yes Resp Symptoms (Recalled from RN notes): No Skin Symptoms (Recalled from RN notes): No MS Symptoms (Recalled from RN notes): No Functional Status (Recalled from RN notes): n/a History of Present Illness Provider Complaint: Patient states that she has been having sore throat for the last few days States that daughter has had strep throat and she thinks they are passing it back and forth States that she had some left over amoxil and has been taking it but doesnt have enough and not sure if it is even working Related Data Home Medications Medication Instructions Recorded Confirmed potassium chloride 20 mEq 20 meq PO QID Potassium Supplement 07/26/19 02/23/24 tablet,extended release metformin 500 mg tablet 1,000 mg PO BIDWMEAL Diabetes 04/06/21 02/23/24 empagliflozin 25 mg tablet 25 mg PO DAILY Diabetes 05/09/23 02/23/24 (Jardiance) escitalopram oxalate 5 mg tablet 5 mg PO DAILY 02/23/24 02/23/24 Previous Rx's Medication Instructions Recorded azithromycin 250 mg tablet See Rx Instructions PO .COMPLEX 5 02/23/24 (Zithromax Z-Aaron) days #6 tabs Allergies Allergy/AdvReac Type Severity Reaction Status Date / Time No Known Allergies Allergy Verified 02/23/24 17:36 Worker's Comp Is this a Worker's Comp case?: No [facility] Disclaimer: The information contained in this section may have been updated after the patient was seen, as this information can be updated by other users. Medical History Bartter syndrome Diabetes mellitus, type 2 Surgical History History of section Family History Other No significant family history Social History Smoking Status: Current every day smoker tobacco type: cigarettes packs per day: 1 alcohol intake: never current occupational status: other Travel in the last 8 weeks: None ROS Obtained: Yes All systems reviewed & no additional complaints except as documented and Yes Systems reviewed as appropriate & no additional complaints except as documented Constitutional Constitutional: Reports system reviewed and no additional complaints, except as documented and Reports as per HPI ENT Ears, Nose, Mouth, and Throat: Reports system reviewed and no additional complaints, except as documented, Reports as per HPI and Reports sore throat Cardiovascular Cardiovascular: Reports system reviewed and no additional complaints, except as documented and Reports as per HPI Respiratory Respiratory: Reports system reviewed and no additional complaints, except as documented and Reports as per HPI Gastrointestinal Gastrointestingal: Reports system reviewed and no additional complaints, except as documented and as per HPI Physical Exam General General appearance: alert and in no apparent distress Expanded ENT Exam Throat exam: Present tonsillar erythema (small patchy like area noted on right) Respiratory Respiratory exam: Present normal lung sounds bilaterally; Absent respiratory distress or wheezes Cardiovascular Cardiovascular exam: Present regular rate, normal rhythm and normal heart sounds Neurological Exam Neurological exam: Present alert, oriented X3 and normal gait Medical Decision Making Zackary Inquiry Pt receiving controlled substance: No Zackary was queried for this patient: No Vital Signs: 02/23/24 17:20 Temperature 98.4 F Temperature Source Oral Pulse Rate [Right Radial] 87 Respiratory Rate 19 Blood Pressure [Right Arm] 119/74 Blood Pressure Mean [Right Arm] 89 Blood Pressure Source [Right Arm] Automatic Cuff Blood Pressure Position [Right Arm] Sitting 02 Sat by Pulse Oximetry 96 Oxygen Delivery Method Room Air Lab Data Lab results reviewed: Yes I reviewed the patient's lab results. Lab Results 02/23/24 17:27: Strep Scn Rapid Clinic Negative Orders (Tests/Meds): ORDERS Category Date Time Status Strep Screen Confirmation Stat Micro 02/23/24 17:27 Received Medical Decision Narrative: Patient states that she has taken azithromcyin with her current medication without complications or reactions
[2024-02-23 18:09] VITALS: BP 119/74; PULSE 87; RESP 19; TEMP 36.9; O2SAT 96
== END 2024-02-23 18:09 | disposition home or self-care (01) ==
PROVIDERS: Emergency Provider Nurse Practitioner; PCP Family Medicine
DX: J02.9 Acute pharyngitis, unspecified (principal); R05.9 Cough, unspecified; F17.210 Nicotine dependence, cigarettes, uncomplicated; E11.9 Type 2 diabetes mellitus without complications; Z79.84 Long term (current) use of oral hypoglycemic drugs
CPT/HCPCS: 87880; 99212; 99214; G0463

== ENCOUNTER 2024-08-25 12:51 | Emergency (ER) | payer BC, SELFPAY ==
[2024-08-25 13:08] VITALS: BP 117/76; PULSE 70; RESP 20; TEMP 36.7; O2SAT 94; BMI 35.6
[2024-08-25 13:17] LABS: UTC Strep Screen (Rapid) Negative (Negative)
--- NOTE | 2024-08-25 13:31 | EXP.UTC ---
Discharge Plan Disposition Patient Disposition: Home, Self-Care Condition: Good Prescriptions Prescriptions: New amoxicillin 875 mg tablet 875 mg PO Q12H Qty: 20 0RF methylprednisolone 4 mg Tablets,Dose Pack 4 mg PO DIRECTED 6 Days Qty: 21 0RF Rx Instructions: Take 1 pack as directed for 6 days vlwzzvjdmslaerl-[id number] [Bromfed DM] 2-30-10 mg/5 mL Syrup 5 ml PO Q6H PRN (Reason: Cough) Qty: 240 0RF No Action potassium chloride 20 MEQ tablet extended release 20 meq PO QID Patient Comments: TAKE 1 TABLET BY MOUTH 4 TIMES DAILY metformin 500 MG tablet 1,000 mg PO BIDWMEAL Jardiance 25 mg tablet 25 mg PO DAILY Patient Comments: TAKE 1 TABLET BY MOUTH ONCE DAILY escitalopram oxalate 5 mg tablet 5 mg PO DAILY Referrals Follow up/Referrals: Bushra Degroot MD [Primary Care Provider] - See instructions Activity Restrictions/Add. Instructions Additional Instructions/Restrictions: Drink plenty of fluids. Take tylenol or ibuprofen for pain or fever. Take the medications as directed. Follow up with your regular doctor. GO TO THE ER FOR ANY WORSENING SYMPTOMS Clinical Impressions Clinical Impression: Pharyngitis, Asthma exacerbation Stand Alone Forms Stand Alone Forms: Work/School Release Instructions Patient Instructions: Sore Throat, DI for Pharyngitis/Tonsillopharyngitis -- Adult Print Language Print Language: Norwegian Discharge ED Provider[place] Ribeiro [facility] [place] General Stated complaint: sore throat, cough Mode of Arrival: Ambulatory Source of Information: Patient Time Seen by Provider: 08/25/24 13:31 Description of Symptoms (Recalled from Triage Doc. by RN): SORE THROAT/COUGH HEENT Symptoms (Recalled from RN notes): Yes Resp Symptoms (Recalled from RN notes): Yes Skin Symptoms (Recalled from RN notes): No MS Symptoms (Recalled from RN notes): No Functional Status (Recalled from RN notes): WNL Related Data Home Medications ?Medication ?Instructions ?Recorded ?Confirmed potassium chloride 20 mEq 20 meq PO QID Potassium Supplement 07/26/19 08/25/24 tablet,extended release metformin 500 mg tablet 1,000 mg PO BIDWMEAL Diabetes 04/06/21 08/25/24 empagliflozin 25 mg tablet 25 mg PO DAILY Diabetes 05/09/23 08/25/24 (Jardiance) escitalopram oxalate 5 mg tablet 5 mg PO DAILY 02/23/24 08/25/24 Previous Rx's ?Medication ?Instructions ?Recorded amoxicillin 875 mg tablet 875 mg PO Q12H #20 tabs 08/25/24 nulxftfzedhodip-katkmfoqhzfqrdk-ZJ 5 ml PO Q6H PRN Cough #240 mL 08/25/24 2 mg-30 mg-10 mg/5 mL oral syrup (Bromfed DM) methylprednisolone 4 mg tablets in 4 mg PO DIRECTED 6 days #21 tabs 08/25/24 a dose pack Allergies Allergy/AdvReac Type Severity Reaction Status Date / Time No Known Allergies Allergy Verified 02/23/24 17:36 Worker's Comp Is this a Worker's Comp case?: No [facility] Disclaimer: The information contained in this section may have been updated after the patient was seen, as this information can be updated by other users. Medical History Bartter syndrome Diabetes mellitus, type 2 Surgical History History of section Family History Other No significant family history Social History Smoking Status: Current every day smoker tobacco type: cigarettes packs per day: 1 alcohol intake: never current occupational status: other Travel in the last 8 weeks: None ROS Obtained: Yes All systems reviewed & no additional complaints except as documented Constitutional Constitutional: Reports chills and Reports fever(s) Eyes Eyes: Denies eye discharge ENT Ears, Nose, Mouth, and Throat: Reports as per HPI Cardiovascular Cardiovascular: Denies chest pain Respiratory Respiratory: Denies chest congestion and Reports cough Gastrointestinal Gastrointestingal: Reports nausea; Denies abdominal pain, constipation, cramping, diarrhea or vomiting Musculoskeletal Musculoskeletal: Denies arthralgias Integumentary/Breasts Skin/Breast: Denies rash Neurologic Neurologic: Denies paresthesias Physical Exam General General appearance: alert and in no apparent distress Head Head exam: atraumatic, normocephalic and normal inspection Eye Eye exam: Present normal appearance, PERRL and EOMI ENT ENT exam: Present mucous membranes moist and normal external ear exam Expanded ENT Exam TM/Canal exam: Bilateral TM: erythema and bulging Nose exam: Absent sinus tenderness Mouth exam: Present normal external inspection; Absent drooling Teeth exam: Present normal inspection Throat exam: Present tonsillar erythema, tonsillomegaly and tonsillar exudate Neck Neck exam: Present normal inspection, full ROM and trachea midline; Absent tenderness, meningismus or lymphadenopathy Chest Chest inspection: Present normal inspection and symmetric chest wall rise; Absent tenderness Respiratory Respiratory exam: Present normal lung sounds bilaterally; Absent respiratory distress, wheezes, stridor or accessory muscle use Cardiovascular Cardiovascular exam: Present regular rate and normal rhythm; Absent systolic murmur or diastolic murmur Abdominal Exam Abdominal exam: Present soft and normal bowel sounds; Absent distention, tenderness, guarding, rebound or rigidity Extremities Exam Extremities exam: Present normal inspection and normal capillary refill; Absent calf tenderness Back Exam Back exam: Present normal inspection and full ROM; Absent tenderness, CVA tenderness (R) or CVA tenderness (L) Neurological Exam Neurological exam: Present alert, oriented X3 and CN II-XII intact Psychiatric Psychiatric exam: Present normal affect and normal mood Skin Skin exam: Present warm, dry, intact and normal color Medical Decision Making Medical Records Medical records reviewed: No I reviewed the patient's medical records. Screening: Per USPSTF and CDC recommendations, given the prevalence of disease in our region, it is our hospital?s policy to screen for HIV and viral Hepatitis for all patients aged 18 and over and those with ongoing risk factors. Zackary Inquiry Pt receiving controlled substance: No Vital Signs: 08/25/24 13:08 Temperature 98.1 F Temperature Source Oral Pulse Rate [Left Radial] 70 Respiratory Rate 20 Blood Pressure [Left Arm] 117/76 Blood Pressure Mean [Left Arm] 89 02 Sat by Pulse Oximetry 94 L Lab Data Lab results reviewed: Yes I reviewed the patient's lab results. Lab Results 08/25/24 13:09: Strep Scn Rapid Clinic Negative Orders (Tests/Meds): ORDERS Category Date Time Status Strep Screen Confirmation Stat Micro 08/25/24 13:09 Received
[2024-08-25 13:47] VITALS: BP 117/76; PULSE 70; RESP 20; TEMP 36.7
== END 2024-08-25 13:52 | disposition home or self-care (01) ==
PROVIDERS: Emergency Provider Nurse Practitioner Family; PCP Family Medicine
DX: J02.9 Acute pharyngitis, unspecified (principal); J45.909 Unspecified asthma, uncomplicated
CPT/HCPCS: 87635; 87880; 99213; G0381

== ENCOUNTER 2025-03-23 08:16 | Emergency (ER) | payer BC, SELFPAY ==
[2025-03-23 08:26] VITALS: BP 130/91; PULSE 102; RESP 20; TEMP 36.8; O2SAT 92; BMI 36.6
--- NOTE | 2025-03-23 08:30 | PC.NURSE ---
dr hemphill at bedside
--- NOTE | 2025-03-23 08:34 | XR_ITS ---
FINAL REPORT CLINICAL HISTORY: pain, no trauma COMPARISON: 07/05/2021 FINDINGS: AP, oblique and lateral views of the left foot were obtained. There is no acute fracture or dislocation. The joint spaces are preserved. Soft tissues are unremarkable. IMPRESSION: No acute osseous abnormality of the left foot. Reviewed, Interpreted and Dictated by Loreta Watson MD Transcribed by Jyotsna Zacarias Authenticated and [facility]
--- NOTE | 2025-03-23 08:34 | XR_ITS ---
FINAL REPORT CLINICAL HISTORY: pain, no trauma FINDINGS: AP, oblique, and lateral views of the left elbow were obtained. There is no prior exam for comparison. There is no acute fracture or dislocation. Joint space is preserved. There is no joint effusion or other soft tissue abnormality. IMPRESSION: No acute osseous abnormality of the left elbow. Reviewed, Interpreted and Dictated by Loreta Watson MD Transcribed by Jyotsna Zacarias Authenticated and . [facility]
--- NOTE | 2025-03-23 08:47 | ED_ITS ---
Discharge Plan Disposition Patient Disposition: Home, Self-Care Condition: Good Prescriptions Prescriptions: New diclofenac sodium [Voltaren Arthritis Pain] 1 % gel 4 g topical QID Qty: 100 0RF Rx Instructions: apply to single knee, ankle, foot; for foot includes sole/toes/top of foot acetaminophen [Tylenol 8 Hour] 650 mg tablet extended release 650 mg PO Q12H 7 Days Qty: 14 0RF No Action sulfamethoxazole-trimethoprim [Bactrim DS] 800-160 mg tablet 1 tab PO BID 10 Days Qty: 20 0RF cephalexin 500 mg capsule 500 mg PO QID 7 Days Qty: 28 0RF potassium chloride 20 MEQ tablet extended release 20 meq PO QID Patient Comments: TAKE 1 TABLET BY MOUTH 4 TIMES DAILY metformin 500 MG tablet 1,000 mg PO BIDWMEAL escitalopram oxalate 5 mg tablet 5 mg PO DAILY Referrals Follow up/Referrals: Bushra Degroto MD [Primary Care Provider] - See instructions Nathaniel Vásquez DO [Staff Physician] - See instructions Activity Restrictions/Add. Instructions Additional Instructions/Restrictions: You were evaluated in the emergency department today. 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 Rest, ice, and elevate your extremity to help reduce pain and swelling. If you do not get relief with medications as prescribed, please follow-up with orthopedics. Call their office to schedule an appointment. Return to the emergency department for new or worsening symptoms. Clinical Impressions Clinical Impression: Arthralgia of elbow, left, Acute pain of left foot Stand Alone Forms Stand Alone Forms: Work/School Release Instructions Patient Instructions: DI for Acute Pain -- Adult, DI for Elbow Pain, DI for Foot Pain Print Language Print Language: Kyrgyz Discharge ED Provider: Nadege Parikh General Adult HPI General Chief complaint: PAIN Stated complaint: Pain in L foot/Left elbow, no accident Time Seen by Provider: 03/23/25 08:24 Mode of Arrival: Ambulatory Source of Information: Patient Description of Symptoms (Recalled from ER Triage Doc. by RN): pt states she has been left elbow pain for a few months now and its worse when lifting something heavy with left arm, then two days ago patient devleoped pain in the top of left foot, no known fall or trauma History of Present Illness HPI narrative: This patient is a 34-year-old female with a history of obesity, type 2 diabetes, GERD presenting to the emergency department for evaluation with concern for left elbow pain and left foot pain. Patient states that she has been having left elbow pain for several months now with no known trauma or injury. She states it is worse when lifting something heavy with her arm. She now started having pain on the dorsal aspect of her left foot, mostly on the medial side. No known trauma or injury there either. She is still able to bear weight. No redness, warmth, or acute skin changes. No fevers or infectious symptoms otherwise. Related Data Home Medications ?Medication ?Instructions ?Recorded ?Confirmed potassium chloride 20 mEq 20 meq PO QID Potassium Supplement 07/26/19 02/27/25 tablet,extended release metformin 500 mg tablet 1,000 mg PO BIDWMEAL Diabetes 04/06/21 02/27/25 escitalopram oxalate 5 mg tablet 5 mg PO DAILY 02/23/24 02/27/25 Previous Rx's ?Medication ?Instructions ?Recorded cephalexin 500 mg capsule 500 mg PO QID 7 days #28 caps 02/27/25 sulfamethoxazole 800 1 tab PO BID 10 days #20 tabs 02/27/25 mg-trimethoprim 160 mg tablet (Bactrim DS) acetaminophen 650 mg 650 mg PO Q12H 1 week #14 tabs 03/23/25 tablet,extended release (Tylenol 8 Hour) diclofenac sodium 1 % topical gel 4 g topical QID #100 grams 03/23/25 (Voltaren Arthritis Pain) Allergies Allergy/AdvReac Type Severity Reaction Status Date / Time No Known Allergies Allergy Verified 02/27/25 14:39 [facility] Disclaimer: The information contained in this section may have been updated after the patient was seen, as this information can be updated by other users. Medical History Cellulitis Bartter syndrome Diabetes mellitus, type 2 Surgical History History of section Family History Other No significant family history Social History Smoking Status: Current every day smoker tobacco type: cigarettes packs per day: 1 alcohol intake: never current occupational status: other Travel in the last 8 weeks?: None Have you lived/traveled outside [place] in past 30 days?: No Contact w/someone who lives/traveled outside [place] past 30 days?: No Exposure to someone with infectious disease in past 14 days?: No Do you have a fever (greater than 100.4 F or 38 C)?: No Have you tested positive for COVID-19?: No Exposed to someone with COVID-19 in past 14 days?: No Do you have a sore throat?: No Do you have a cough?: No Do you have any weakness?: No Do you have any diarrhea?: No Are you experiencing any unusual bleeding?: No Do you have any muscle aches/pain?: Yes Do you have any abdominal pain?: No Are you experiencing loss of taste or smell?: No Other Medical History Have you received the Flu Vaccine for this season: No Have you received the Pneumonia Vaccine: No ROS Obtained: Yes All systems reviewed & no additional complaints except as documented Physical Exam General General appearance: alert and in no apparent distress Head Head exam: atraumatic and normocephalic Eye Eye exam: Present normal appearance, PERRL and EOMI ENT ENT exam: Present normal exam, normal oropharynx, mucous membranes moist and normal external ear exam Neck Neck exam: Present normal inspection, full ROM and trachea midline; Absent tenderness Chest Chest inspection: Present normal inspection and symmetric chest wall rise; Absent tenderness Respiratory Respiratory exam: Present normal lung sounds bilaterally; Absent respiratory distress, wheezes, stridor or accessory muscle use Cardiovascular Cardiovascular exam: Present regular rate and normal rhythm Abdominal Exam Abdominal exam: Present soft; Absent distention, tenderness or guarding Extremities Exam Extremities exam: Present full ROM, tenderness and normal capillary refill; Absent edema Expanded Upper Extremity Exam Left: L/R Arms Top View: 2 1. Tenderness to palpation of the left elbow with no redness, warmth, or skin changes. Neurovascularly intact distally. Intact range of motion. Expanded Lower Extremity Exam Left: Top foot image: 2 1. Tenderness to palpation with no redness, warmth, or skin color changes. Neurovascularly intact distally Back Exam Back exam: Present normal inspection and full ROM; Absent tenderness Neurological Exam Neurological exam: Present alert, oriented X3, CN II-XII intact and normal gait; Absent motor sensory deficit Psychiatric Psychiatric exam: Present normal affect and normal mood Skin Skin exam: Present warm and dry Medical Decision Making Medical Records Medical records reviewed: Yes I reviewed the patient's medical records. Screening: Per USPSTF and CDC recommendations, given the prevalence of disease in our region, it is our hospital?s policy to screen for HIV and viral Hepatitis for all patients aged 18 and over and those with ongoing risk factors. Zackary Inquiry Pt receiving controlled substance: No Vital Signs: 03/23/25 08:26 03/23/25 09:10 Temperature 98.2 F 98.2 F Temperature Source Oral Pulse Rate 87 Pulse Rate [Left Radial] 102 H Respiratory Rate 20 20 Blood Pressure 128/86 Blood Pressure [Right Arm] 130/91 H Blood Pressure Mean [Right Arm] 104 02 Sat by Pulse Oximetry 92 L Oxygen Delivery Method Room Air Room Air Lab Data Lab results reviewed: Yes I reviewed the patient's lab results. Orders (Tests/Meds): ORDERS Category Date Time Status Elbow XR left mininum 3 views [XR elbow LT min 3V] Stat Exams 03/23/25 08:34 Completed Foot XR left minimum 3 views [XR foot LT min 3V] Stat Exams 03/23/25 08:34 Completed Medical Decision Narrative: In summary, this patient is a 34-year-old female presenting to the Emergency Department for evaluation of left elbow pain for months, left foot pain for a few days without any known traumatic injury. Differential diagnoses considered include but are not limited to osteoarthritis, septic arthritis, fracture, contusion, strain/sprain, tendinitis. Ruling out the most morbid conditions drove assessment. It should be noted patient's history includes obesity and diabetes which may or may not be at goal therapy. This complicates all aspects of care by increasing patient's risk for morbidity. On exam, the patient is well-appearing. She has tenderness to palpation of the left elbow joint as well as the dorsal aspect the left foot with no redness, warmth, or skin changes. No significant swelling or deformity. She is neurovascularly intact distally. Doubt septic arthritis or other acute emergent pathology at this time. workup included x-ray of the left elbow and left foot.. I independently interpreted x-ray prior to the radiologist read and noted no acute fracture or bony destruction. Please see their read for final interpretation. At this time, I feel the patient is appropriate for discharge home with close follow-up with PCP versus orthopedics for atraumatic left elbow and left foot pain. I do not feel that other labs or imaging are indicated currently based on reassuring history and exam. Strict return precautions were given as well as prescriptions for Tylenol and topical diclofenac. Critical Care Critical Care Time Critical Care Time: No
[2025-03-23 09:10] VITALS: BP 128/86; PULSE 87; RESP 20; TEMP 36.8; O2SAT 94
== END 2025-03-23 09:11 | disposition home or self-care (01) ==
PROVIDERS: Emergency Provider Emergency Medicine; PCP Family Medicine
DX: M79.672 Pain in left foot (principal); M25.522 Pain in left elbow
CPT/HCPCS: 73080; 73630; 99284

== ENCOUNTER 2025-05-12 16:30 | Emergency (ER) | payer BC, SELFPAY ==
[2025-05-12 16:39] VITALS: BP 138/84; PULSE 95; RESP 19; TEMP 37; O2SAT 98; BMI 34.5
--- NOTE | 2025-05-12 16:44 | HMH.EDGENADL ---
Discharge Plan Disposition Patient Disposition: Home, Self-Care Condition: Good Prescriptions Prescriptions: New pantoprazole 40 mg tablet,delayed release (DR/EC) 40 mg PO DAILY Qty: 30 2RF sucralfate [Carafate] 100 mg/mL suspension 1 g PO BID 7 Days Qty: 140 0RF No Action azithromycin [Zithromax Z-Aaron] 250 mg tablet See Rx Instructions PO .COMPLEX Qty: 6 0RF Rx Instructions: For 250 mg dose pack: take 500 mg today (day 1), then 250 mg for 4 days (days 2-5) PO potassium chloride 20 MEQ tablet extended release 20 meq PO QID Patient Comments: TAKE 1 TABLET BY MOUTH 4 TIMES DAILY metformin 500 MG tablet 1,000 mg PO BIDWMEAL escitalopram oxalate 5 mg tablet 5 mg PO DAILY diclofenac sodium [Voltaren Arthritis Pain] 1 % gel 4 g topical QID Qty: 100 0RF Rx Instructions: apply to single knee, ankle, foot; for foot includes sole/toes/top of foot acetaminophen [Tylenol 8 Hour] 650 mg tablet extended release 650 mg PO Q12H 7 Days Qty: 14 0RF Referrals Follow up/Referrals: Bushra Degroot MD [Primary Care Provider, Medical] - See instructions Nnamdi Mckenzie II, MD [Staff Physician, Gastroenterology] - See instructions Activity Restrictions/Add. Instructions Additional Instructions/Restrictions: You were evaluated in the emergency department today. 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 Return to the emergency department for new or worsening symptoms. Clinical Impressions Clinical Impression: GERD (gastroesophageal reflux disease), Esophagitis Instructions Patient Instructions: DI for Gastroesophageal Reflux Disease (GERD), DI for Esophagitis Print Language Print Language: Pashto Discharge ED Provider: Nadege Parikh General Adult HPI General Chief complaint: Nausea/Vomiting/Diarrhea Stated complaint: Pain in chest with deep breaths,vomiting Time Seen by Provider: 05/12/25 16:35 History of Present Illness HPI narrative: This patient is a 34-year-old female with a history of diabetes, peptic ulcer disease presenting to the emergency department for evaluation with concern for globus sensation. Patient reports that for the last couple days, she has felt like there is something stuck in her throat whenever she tries to eat and drink. She notes that food goes down fine and she is able to eat and drink without issue, it just feels like there is something there. She has some discomfort. She denies any fevers, shortness of breath, cough, or other concerns. She also denies any abdominal pain. She notes that she was diagnosed with esophagitis in the past and put on medication for management of this, which really seem to help these types of symptoms. She notes she also saw GI and had an endoscopy showing ulcer, but she is not been able to follow-up because of cost issues. Related Data Home Medications ?Medication ?Instructions ?Recorded ?Confirmed potassium chloride 20 mEq 20 meq PO QID Potassium Supplement 07/26/19 03/29/25 tablet,extended release metformin 500 mg tablet 1,000 mg PO BIDWMEAL Diabetes 04/06/21 03/29/25 escitalopram oxalate 5 mg tablet 5 mg PO DAILY 02/23/24 03/29/25 Previous Rx's ?Medication ?Instructions ?Recorded acetaminophen 650 mg 650 mg PO Q12H 1 week #14 tabs 03/23/25 tablet,extended release (Tylenol 8 Hour) diclofenac sodium 1 % topical gel 4 g topical QID #100 grams 03/23/25 (Voltaren Arthritis Pain) azithromycin 250 mg tablet See Rx Instructions PO .COMPLEX #6 03/29/25 (Zithromax Z-Aaron) tabs pantoprazole 40 mg tablet,delayed 40 mg PO DAILY #30 tabs 05/12/25 release sucralfate 100 mg/mL oral 1 g (10 mL) PO BID 7 days #140 mL 05/12/25 suspension (Carafate) Allergies Allergy/AdvReac Type Severity Reaction Status Date / Time No Known Allergies Allergy Verified 03/29/25 08:22 [facility] Disclaimer: The information contained in this section may have been updated after the patient was seen, as this information can be updated by other users. Medical History Cellulitis Bartter syndrome Diabetes mellitus, type 2 Surgical History History of section Family History Other No significant family history Social History Smoking Status: Current every day smoker tobacco type: cigarettes packs per day: 1 alcohol intake: never current occupational status: other Travel in the last 8 weeks?: None Have you lived/traveled outside US in past 30 days?: No Contact w/someone who lives/traveled outside US past 30 days?: No Exposure to someone with infectious disease in past 14 days?: No Do you have a fever (greater than 100.4 F or 38 C)?: No Have you tested positive for COVID-19?: No Exposed to someone with COVID-19 in past 14 days?: No Do you have a sore throat?: No Do you have a cough?: Yes Do you have any weakness?: No Do you have any diarrhea?: No Are you experiencing any unusual bleeding?: No Do you have any muscle aches/pain?: No Do you have any abdominal pain?: No Are you experiencing loss of taste or smell?: No Other Medical History Have you received the Flu Vaccine for this season: No Have you received the Pneumonia Vaccine: No ROS Obtained: Yes All systems reviewed & no additional complaints except as documented Physical Exam General General appearance: alert and in no apparent distress Head Head exam: atraumatic and normocephalic Eye Eye exam: Present normal appearance, PERRL and EOMI ENT ENT exam: Present normal exam, normal oropharynx, mucous membranes moist and normal external ear exam Neck Neck exam: Present normal inspection, full ROM and trachea midline; Absent tenderness Chest Chest inspection: Present normal inspection and symmetric chest wall rise; Absent tenderness Respiratory Respiratory exam: Present normal lung sounds bilaterally; Absent respiratory distress, wheezes, stridor or accessory muscle use Cardiovascular Cardiovascular exam: Present regular rate and normal rhythm Abdominal Exam Abdominal exam: Present soft; Absent distention, tenderness or guarding Extremities Exam Extremities exam: Present normal inspection, full ROM and normal capillary refill; Absent tenderness or edema Back Exam Back exam: Present normal inspection and full ROM; Absent tenderness Neurological Exam Neurological exam: Present alert, oriented X3, CN II-XII intact and normal gait; Absent motor sensory deficit Psychiatric Psychiatric exam: Present normal affect and normal mood Skin Skin exam: Present warm and dry Medical Decision Making Medical Records Medical records reviewed: Yes I reviewed the patient's medical records. Screening: Per USPSTF and CDC recommendations, given the prevalence of disease in our region, it is our hospital?s policy to screen for HIV and viral Hepatitis for all patients aged 18 and over and those with ongoing risk factors. Zackary Inquiry Pt receiving controlled substance: No Vital Signs: 05/12/25 16:39 05/12/25 16:47 Temperature 98.6 F Temperature Source Oral Pulse Rate 95 H Pulse Rate [Left] 95 H Respiratory Rate 19 17 Blood Pressure [Right Arm] 138/84 Blood Pressure Mean [Right Arm] 102 Blood Pressure Source [Right Arm] Automatic Cuff 02 Sat by Pulse Oximetry 98 98 Oxygen Delivery Method Room Air Room Air Lab Data Lab results reviewed: Yes I reviewed the patient's lab results. Orders (Tests/Meds): ED MEDICATIONS Discontinued Medications Generic Name Dose Route Start Last Admin Trade Name Freq PRN Reason Stop Dose Admin Belladonna Alkaloids 60 ml 05/12/25 16:44 05/12/25 16:51 Belladonna Alkaloids 60 Ml Ml PO 05/12/25 16:45 60 ml ONCE ONE Administration Pantoprazole Sodium 40 mg 05/12/25 16:44 05/12/25 16:51 Pantoprazole 40mg Tablet PO 05/12/25 16:45 40 mg ONCE ONE Administration Medical Decision Narrative: In summary, this patient is a 34-year-old female presenting to the Emergency Department for evaluation of globus sensation after stopping her medications for GERD/esophagitis. Differential diagnoses considered include but are not limited to GERD, esophagitis, eosinophilic esophagitis, esophageal stricture, foreign body. Ruling out the most morbid conditions drove assessment. On exam, the patient is very well-appearing. She has no other concerns or complaints. I reviewed past medical records and noted prior evaluations for GERD and esophagitis in the past. Patient had significant improvement after initiation on antacids. She ran out of these, which I feel is the reason that her symptoms are worsening today. She has no true chest pain or shortness of breath, no indication for further workup on my assessment. She is tolerating oral intake without issue. I feel she is appropriate for reinitiation of PPI and close follow-up outpatient with GI. On reassessment, the patient had improvement in symptoms after administration of Interventions above and is able to tolerate oral intake.given this, I feel that she is appropriate for discharge home with PCP and GI follow-up. Strict return precautions were given. Critical Care Critical Care Time Critical Care Time: No
[2025-05-12 16:47] VITALS: PULSE 95; RESP 17; O2SAT 98
[2025-05-12] MEDS: PANTOPRAZOLE 40MG TABLET 40 MG PO (16:51)
[2025-05-12] MEDS: BELLADONNA ALKALOIDS 60 ML ML PO (16:51)
[2025-05-12 17:32] VITALS: BP 107/74; PULSE 78; RESP 17; TEMP 37; O2SAT 99
== END 2025-05-12 17:34 | disposition home or self-care (01) ==
PROVIDERS: Emergency Provider Emergency Medicine; PCP Family Medicine
DX: K21.9 Gastro-esophageal reflux disease without esophagitis (principal); K20.90 Esophagitis, unspecified without bleeding; F17.210 Nicotine dependence, cigarettes, uncomplicated
CPT/HCPCS: 99283

== ENCOUNTER 2025-07-12 12:31 | Emergency (ER) | payer BC, SELFPAY ==
--- OUTSIDE RECORDS SUMMARY | 2025-07-12 12:37 | XMS_ITS | Clinical Summary ---
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 Not on file 07/2023 Does Anyone Keep You from Co ntacting Others or Doint Things Outside the Home? Not on file 08/25/2023 Physical Sign of Abuse Present Not on file 1 Housing Stability Answer Date Recorded Current Living Arrangements Not on file 07/2023 Potentially Unsafe Housing Conditions Not on shanna e 08/25/2023 Family and Community Support Answer Glen e Recorded Help with Day-to-Day Activities Not on file 08/25/2023 Lonely or Isolated Not on file 08/25/2023 Employment Answer Date Recorded Do you want help finding or keeping work or a siva b? Not on file 08/25/2023 Disabilities Answer Date Recorded Concentrating, Remembering, or Making Decisions Difficulty Not on file 08/25/2023 Doing Errands Independently Difficulty Not on fi le 08/25/2023 Education Answer Date Recorded Help with school or training? Not on file Preferred Language Not on file 08/25/2023 Comments Unknown Sex and Gender Information Value Date Recorded Sex Assigned at Not on file Legal Sex Female 1:29 PM EDT Gender Identity Not on file Sexual Orientation Not on file Plan of Treatment Health Maintenance Due Date Last Done Comments ANNUAL PHYSICAL 1989 Annual Gynecologic Pelvic an d Breast Exam 1989 HEPATITIS C SCREENING 1989 TDAP/TD VACCINES (1 - Tdap) 2008 COVID-19 Vaccine (2023-2 5 season) 2024 INFLUENZA VACCINE 08/17/2025 Pneumococcal Vaccine 0-49 Aged Out No longer eligible based on patient's age to complete this topic
--- NOTE | 2025-07-12 13:05 | ED_ITS ---
<Statement entered by Beck Marie MD - 07/13/25 07:00> I was consulted by the DODIE, and we discussed the complexity of the problems being addressed. I approve the treatment and management plan for this patient's care in the emergency department, thus performing a substantive portion of the medical decision making. Beck Marie MD Discharge Plan Disposition Patient Disposition: Home, Self-Care Condition: Good Prescriptions Prescriptions: New sulfamethoxazole-trimethoprim [Bactrim DS] 800-160 mg tablet 1 tab PO BID 7 Days Qty: 14 0RF fluconazole 150 mg tablet 150 mg PO Q3D Qty: 2 0RF Rx Instructions: may repeat second dose 72 hrs after first dose if symptoms persist No Action azithromycin [Zithromax Z-Aaron] 250 mg tablet See Rx Instructions PO .COMPLEX Qty: 6 0RF Rx Instructions: For 250 mg dose pack: take 500 mg today (day 1), then 250 mg for 4 days (days 2-5) PO potassium chloride 20 MEQ tablet extended release 20 meq PO QID Patient Comments: TAKE 1 TABLET BY MOUTH 4 TIMES DAILY metformin 500 MG tablet 1,000 mg PO BIDWMEAL escitalopram oxalate 5 mg tablet 5 mg PO DAILY diclofenac sodium [Voltaren Arthritis Pain] 1 % gel 4 g topical QID Qty: 100 0RF Rx Instructions: apply to single knee, ankle, foot; for foot includes sole/toes/top of foot acetaminophen [Tylenol 8 Hour] 650 mg tablet extended release 650 mg PO Q12H 7 Days Qty: 14 0RF pantoprazole 40 mg tablet,delayed release (DR/EC) 40 mg PO DAILY Qty: 30 2RF sucralfate [Carafate] 100 mg/mL suspension 1 g PO BID 7 Days Qty: 140 0RF Referrals Follow up/Referrals: Brittni Sandoval DO [Staff Physician, CARDIOVASCULAR RADIOLOGIC TECHNOLOGIST] - See instructions Bushra Degroot MD [Primary Care Provider, Medical] - See instructions Clinical Impressions Clinical Impression: Bartholin cyst Stand Alone Forms Stand Alone Forms: Work/School Release Instructions Patient Instructions: DI for Skin Abscess Print Language Print Language: Sierra Leonean Discharge ED Provider: Beck Marie General Adult HPI General Chief complaint: Skin/Abscess/Foreign Body Stated complaint: possible boil in private area Time Seen by Provider: 07/12/25 13:05 History of Present Illness HPI narrative: 34-year-old female presents the emergency department with complaints of painful swollen cyst to her left vaginal area. She states she repeatedly gets lesions like this in her armpits and groin area however this 1 has been the most painful she denies fevers. She has not been on any antibiotics recently nor has she followed up with a primary care provider for these wounds. Related Data Home Medications ?Medication ?Instructions ?Recorded ?Confirmed potassium chloride 20 mEq 20 meq PO QID Potassium Supp lement 07/26/19 03/29/25 tablet,extended release metformin 500 mg tablet 1,000 mg PO BIDWMEAL Diabete s 04/06/21 03/29/25 escitalopram oxalate 5 mg tablet 5 mg PO DAILY 4 03/29/25 Previous Rx's ?Medication ?Instructions ?Recorded acetaminophen 650 mg 650 mg PO Q12H 1 week #14 ta bs 03/23/25 tablet,extended release (Tylenol 8 Hour) diclofenac sodium 1 % topical gel 4 g topical QID #100 grams 03/23/25 (Voltaren Arthritis Pain) azithromycin 250 mg tablet See Rx Instructions PO .COM PLEX #6 03/29/25 (Zithromax Z-Aaron) tabs pantoprazole 40 mg tablet,delayed 40 mg PO DAILY #30 t abs 05/12/25 release sucralfate 100 mg/mL oral 1 g (10 mL) PO BID 7 days #1 40 mL 05/12/25 suspension (Carafate) fluconazole 150 mg tablet 150 mg PO Q3D 2 doses #2 tab s 07/12/25 sulfamethoxazole 800 1 tab PO BID 7 days #14 tabs 07/12/25 mg-trimethoprim 160 mg tablet (Bactrim DS) Allergies Allergy/AdvReac Type Severity Reaction Status Date / Time No Known Allergies Allergy Verified 03/29/25 08:22 [facility] Disclaimer: The information contained in this section may have been updated after the patient was seen, as this information can be updated by other users. Medical History Cellulitis Bartter syndrome Diabetes mellitus, type 2 Surgical History History of section Family History Other No significant family history Social History Smoking Status: Current every day smoker tobacco type: cigarettes packs per day: 1 alcohol intake: never current occupational status: other Travel in the last 8 weeks?: None Have you lived/traveled outside US in past 30 days?: No Contact w/someone who lives/traveled outside US past 30 days?: No Exposure to someone with infectious disease in past 14 days?: No Do you have a fever (greater than 100.4 F or 38 C)?: No Have you tested positive for COVID-19?: No Exposed to someone with COVID-19 in past 14 days?: No Do you have a sore throat?: No Do you have a cough?: No Do you have any weakness?: No Do you have any diarrhea?: No Are you experiencing any unusual bleeding?: No Do you have any muscle aches/pain?: No Do you have any abdominal pain?: No Are you experiencing loss of taste or smell?: No Other Medical History Have you received the Flu Vaccine for this season: No Have you received the Pneumonia Vaccine: No ROS Obtained: Yes All systems reviewed & no additional complaints except as documented Genitourinary Comments: Patient complains of a red swollen wound to her left labial area. She reports the swelling has been present for the past couple of days. Physical Exam Narrative Physical exam: Patient alert and oriented x 4 with no focal neurological deficits. Abdomen soft nontender with normal active bowel sounds. Patient with normal heart and lung sounds as well. Incisions intact with 2+ pulses in all extremities. Patient does have what appears to be a Bartholin's cyst that is draining on her left labial area. The drainage is purulent and malodorous. She does report significant tenderness on palpation of the area. Rest of exam is unremarkable General General appearance: alert Respiratory Respiratory exam: Present normal lung sounds bilaterally Cardiovascular Cardiovascular exam: Present regular rate Neurological Exam Neurological exam: Present alert Medical Decision Making Medical Records Screening: Per USPSTF and CDC recommendations, given the prevalence of disease in our region, it is our hospital?s policy to screen for HIV and viral Hepatitis for all patients aged 18 and over and those with ongoing risk factors. Zackary Inquiry Pt receiving controlled substance: No Zackary was queried for this patient: No Vital Signs: 07/12/25 13:16 07/12/25 13:22 07/12/25 13:24 Temperature 98.4 F 98.4 F Temperature Source Oral Oral Pulse Rate 86 104 H Pulse Rate [Right] 104 H Respiratory Rate 17 17 Blood Pressure 111/84 111/84 Blood Pressure [Right Arm] 111/84 Blood Pressure Mean [Right Arm] 93 Blood Pressure Source Automatic Cuff Blood Pressure Source [Right Arm] Automatic Cuff Blood Pressure Position Supine Blood Pressure Position [Right Arm] Supine 02 Sat by Pulse Oximetry 96 95 96 Oxygen Delivery Method Room Air Room Air 07/12/25 13:28 07/12/25 14:20 Temperature 98.5 F Temperature Source Oral Pulse Rate 90 Pulse Rate [Right] Respiratory Rate 18 Blood Pressure 115/86 Blood Pressure [Right Arm] Blood Pressure Mean [Right Arm] Blood Pressure Source Automatic Cuff Blood Pressure Source [Right Arm] Blood Pressure Position Supine Blood Pressure Position [Right Arm] 02 Sat by Pulse Oximetry 96 Oxygen Delivery Method Room Air Room Air Orders (Tests/Meds): ED MEDICATIONS Discontinued Medications Generic Name Dose Route Start Last Admin Trade Name [place]et[place] PRN Reason Stop Dose Admin Lidocaine HCl 5 ml 07/12/25 13:18 07/12/25 14:00 Lidocaine 1% 10ml Mdv SUBCUT 07/12/25 13:19 5 ml ONCE ONE Administration ORDERS Category Date Time Status Wound Culture and Gram Stain Stat Micro 07/12/25 13:11 Received Medical Decision Narrative: Initial impression of presenting illness: 34-year-old female presents emergency department complaints of red swollen tender area to her left labial area for the past couple of days. She reports that she has had similar episodes in the past and both her groin and her axilla area. She has not had any recent antibiotic use and denies following up with her primary care provider. Differential diagnosis includes but not limited to: Bartholin cyst, cellulitis, abscess, STI. Patient arrives hemodynamically stable, afebrile, without respiratory distress with vital signs interpreted by myself. Initial physical exam reveals swollen painful area to patient's left labia. There is a small open area that is draining a purulent malodorous drainage. Rest of patient's exam is unremarkable. Initial diagnostic plan includes wound culture with I&D of Bartholin cyst and Word catheter placement. Interventions in the ED clued to the I&D with Word catheter placement patient tolerated this procedure well. The area was cleaned with a Hibiclens scrub. 1% lidocaine was injected for pain control. 15 blade was used to make a small incision to place the Word catheter. Again patient tolerated the procedure well and her symptoms and vitals have remained stable. Disposition: Advised patient that we will discharge home with Bactrim to treat the infection. Told her we will also give her contact information for gynecology and recommended that she call them today to schedule close outpatient follow-up. Instructed her that she should return to the emergency department with any new or worsening symptoms. Advised her that is possible that her catheter may fall out on its own and if so that is okay however if the area attempts to re- abscess she should return to the emergency department for reevaluation. Critical Care Critical Care Time Critical Care Time: No
[2025-07-12 13:16] VITALS: BP 111/84; PULSE 104; RESP 17; TEMP 36.9; O2SAT 96; BMI 33.6
[2025-07-12 13:22] VITALS: BP 111/84; PULSE 86; O2SAT 95
[2025-07-12 13:24] VITALS: BP 111/84; PULSE 104; RESP 17; TEMP 36.9; O2SAT 96
[2025-07-12 13:28] VITALS: O2SAT 96
[2025-07-12] MEDS: LIDOCAINE 1% 10ML MDV 5 ML SUBCUT (14:00)
[2025-07-12 14:20] VITALS: BP 115/86; PULSE 90; RESP 18; TEMP 36.9; O2SAT 97
--- NOTE | 2025-07-15 09:05 | PC.NURSE ---
Wound culture results reviewed by Dr. Landry, no new orders received.
== END 2025-07-12 14:39 | disposition home or self-care (01) ==
PROVIDERS: Emergency Provider Student in an Organized Health Care Education/Training Program; PCP Family Medicine
DX: N75.0 Cyst of Bartholin's gland (principal); F17.210 Nicotine dependence, cigarettes, uncomplicated
CPT/HCPCS: 56420; 87070; 87077; 87186; 87205; 99283